=== PATIENT | male | born 1960 | race African-American/Black ===

== ENCOUNTER → 2016-09-01 | Outpatient (CLI) | payer OTHER ==
[2015-08-06 08:34] VITALS: BP 131/77
[~2016-09-01] MED LIST: DOCU50CA9 PO; GABA-585 PO; GABA-586 PO; GADOBUTROL 7.5 MMOL/7.5 ML VIAL IV ONE; HYDR-2762 PO; HYDR-971 PO; INSU100C SQ; INSU100I17 SQ; INSU100V13 SQ; INSU100V8 SQ; LISI-334 PO; METF500T4 PO; OXYC-323 PO; TIZA4TAB PO; TRAM50TA PO
--- NOTE | 2016-09-01 13:00 | KCIC ---
PROCEDURE MRI lumbar spine without and with contrast. HISTORY Lumbar radiculopathy, previous lumbar surgeries, new low back pain and bilateral leg pain pain for 3 months TECHNIQUE Sagittal and axial T1 and T2, sagittal STIR, and postcontrast sagittal and axial T1 weighted images were acquired of the lumbar spine. Contrast: 14 cc Gadavist COMPARISON January 16, 2015 FINDINGS There is some motion degradation. There has been interval surgery, now posterolateral fusion hardware with bilateral pedicle screws at L4, L5, and S1 attached to vertical rods. Exam does not accurately evaluate integrity of hardware. Lumbar vertebral body stature and AP alignment are similar. Conus terminates at approximately T12, not fully included. There is no nodular enhancement of the conus or cauda equina, no enhancement within the intervertebral disc spaces. There is again prominent degenerative endplate change at L4-5 and L5-S1. There is some thin linear T1 hyperintense signal such at the L2 level in the dorsal central aspect of the thecal sac, likely due to component of fatty filum terminale. Allowing for motion, there is no new convincing focal marrow edema, likely some artifact such as of the L4 and L5 vertebral bodies. L2-L3: Neural foramina and spinal canal are adequate. L3-4: Neural foramina and spinal canal are adequate. There is again mild facet degenerative change. There is negligible disc osteophyte complex in the anterior, inferior neural foramina. L4-5: There has been posterior decompression. There is again minimal disc osteophyte complex. Spinal canal is overall adequate. There is some artifact in the region of the neural foramina, likely mild narrowing on the left. L5-S1: Spinal canal is overall adequate. There is again minimal disc osteophyte complex. There is again protrusion in the distal, anterior right neural foramen and proximal right extraforaminal region with contact of the exiting right L5 nerve root. Left neural foramen is adequate. IMPRESSION 1. Comparing with the December 2014 exam, there has been interval posterolateral fusion L4-S1. Exam does not accurately evaluate integrity of hardware. There has been posterior decompression at L4-5. There is no significant lumbar spinal stenosis. Disc osteophyte complex and protrusion again contacts the exiting right L5 nerve root in the distal aspect of the right L5-S1 neural foramen and proximal extraforaminal region. There is suspected mild narrowing of the left L4-5 neural foramen. Electronically signed by: Wellington Núñez MD (Sep 01, 2016 12:58:54)
== END | disposition home or self-care (01) ==
LOC: KCIC MRI 09:20
PROVIDERS: ATTEND Internal Medicine
DX: M54.16 Radiculopathy, lumbar region (principal); M25.78 Osteophyte, vertebrae; M48.06 Spinal stenosis, lumbar region; M51.26 Other intervertebral disc displacement, lumbar region
CPT/HCPCS: 72158; 82565; A9585

== ENCOUNTER 2017-05-26 10:41 | Emergency (ER) | payer MEDICARE, OTHER ==
[~2017-05-26] VITALS: Ht 193 cm; Wt 145.1 kg
[~2017-05-26 10:41] MED LIST changes: -GADOBUTROL 7.5 MMOL/7.5 ML VIAL IV ONE
[2017-05-26] MEDS ORDERED: IV NORMAL SALINE 1000ML BAG 1,000 ML IV SCH (11:43)
[2017-05-26 12:00] LABS: BASO % 0 % (0-3); EOS % 2 % (0-3); HEMATOCRIT 40.7 % (39.0-53.0); HEMOGLOBIN 12.6 g/dL (13.0-17.5); LYMPH # 3.2 x10^3/uL (1.0-4.8); LYMPH % 48 % (24-48); MEAN CORPUSCULAR HEMOGLOBIN 22 pg (25-35); MEAN CORPUSCULAR HGB CONC 31 g/dL (31-37); MEAN CORPUSCULAR VOLUME 70 fL (79-100); MONO % 8 % (0-9); NEUT % 42 % (31-73); PLATELET COUNT 200 x10^3/uL (140-400); RED BLOOD COUNT 5.81 x10^6/uL (4.30-5.70); RED CELL DISTRIBUTION WIDTH 14.4 % (11.5-14.5); WHITE BLOOD COUNT 6.7 x10^3/uL (4.0-11.0)
[2017-05-26 12:06] LABS: CALCIUM 9.2 mg/dL (8.5-10.1); CREATININE 0.9 mg/dL (0.7-1.3); GFR 104.9; POTASSIUM 4.1 mmol/L (3.5-5.1)
[2017-05-26 12:11] LABS: ALBUMIN 3.2 g/dL (3.4-5.0); ALBUMIN/GLOBULIN RATIO 0.7 (1.0-1.7); TOTAL BILIRUBIN 0.5 mg/dL (0.2-1.0)
[2017-05-26] MEDS ORDERED: TETRACAINE 0.5% OPHTH SOLUTION 4ML BOTTLE. OD ONE (12:15)
[2017-05-26] MEDS ORDERED: PENI250T85 PO (12:52)
--- NOTE | 2017-05-26 12:52 | PHYS DOC ---
Past Medical History Past Medical History: Diabetes-Type II, Hypertension, Other Additional Past Medical Histor: BPH Past Surgical History: Knee Replacement Additional Past Surgical Histo: Right knee replacement, Left thumb surgery, Right eye surgery Alcohol Use: None Drug Use: None Adult General Chief Complaint Chief Complaint: DENTAL PROBLEM HPI HPI Patient is a 57 year old male who complains of dental pain and swelling around his tooth for 1-2 days. He felt so bad this morning that he didn't take his diabetes medication. He denies fever or chills, denies vomiting. He has chronic pain from sciatica but that is not a complaint today. No known drug allergies. Review of Systems Review of Systems Constitutional: Denies fever or chills [] GI: Denies nausea, vomiting Current Medications Current Medications Current Medications Medications (Trade) Dose Ordered Sig/Ursula Start Time Stop Time Status Last Admin Dose Admin Sodium Chloride 1,000 ml @ 1,000 mls/hr Q1H 05/26/17 11:43 05/26/17 12:42 DC 05/26/17 11:54 1,000 MLS/HR Tetracaine HCl (Tetracaine) 1 drop 1X ONCE 05/26/17 12:15 05/26/17 12:16 DC 05/26/17 11:57 1 DROP Allergies Allergies Allergies Coded Allergies Type Severity Reaction Last Updated Verified No Known Drug Allergies 08/06/15 No Physical Exam Physical Exam Constitutional: Well developed, well nourished, no acute distress, non-toxic appearance. Alert, mentating normally, warm and dry. HENT: Normocephalic, atraumatic, bilateral external ears normal, oropharynx moist, nose normal. The upper right central incisor has a chronic appearing fracture without significant abnormality acutely. The right upper premolar has swelling over the gums consistent with a periapical abscess. That tooth has significant caries. The patient is handling his secretions normally and has no trouble swallowing or talking. Neck: Normal range of motion, no stridor. [] Cardiovascular:Heart rate regular rhythm, no murmur [] Lungs & Thorax: Bilateral breath sounds clear to auscultation [] Abdomen: Bowel sounds normal, soft, no tenderness, no masses, no pulsatile masses. [] Skin: Warm, dry, no erythema, no rash. [] Back: No tenderness, no CVA tenderness. [] Extremities: No tenderness, no cyanosis, no clubbing, ROM intact, no edema. [] Neurologic: Alert and oriented X 3, normal motor function, no focal deficits noted. [] Current Patient Data Vital Signs Vital Signs Date Time Temp Pulse Resp B/P (MAP) Pulse Ox O2 Delivery O2 Flow Rate FiO2 05/26/17 13:08 62 16 131/86 (101) 100 Room Air 05/26/17 11:04 98.4 98.4 Lab Values Laboratory Tests Test 05/26/17 11:10 05/26/17 11:50 Glucose (Fingerstick) 304 mg/dL (70-99) H White Blood Count 6.7 x10^3/uL (4.0-11.0) Red Blood Count 5.81 x10^6/uL (4.30-5.70) H Hemoglobin 12.6 g/dL (13.0-17.5) L Hematocrit 40.7 % (39.0-53.0) Mean Corpuscular Volume 70 fL (79-100) L Mean Corpuscular Hemoglobin 22 pg (25-35) L Mean Corpuscular Hemoglobin Concent 31 g/dL (31-37) Red Cell Distribution Width 14.4 % (11.5-14.5) Platelet Count 200 x10^3/uL (140-400) Neutrophils (%) (Auto) 42 % (31-73) Lymphocytes (%) (Auto) 48 % (24-48) Monocytes (%) (Auto) 8 % (0-9) Eosinophils (%) (Auto) 2 % (0-3) Basophils (%) (Auto) 0 % (0-3) Neutrophils # (Auto) 2.8 x10^3uL (1.8-7.7) Lymphocytes # (Auto) 3.2 x10^3/uL (1.0-4.8) Monocytes # (Auto) 0.5 x10^3/uL (0.0-1.1) Eosinophils # (Auto) 0.2 x10^3/uL (0.0-0.7) Basophils # (Auto) 0.0 x10^3/uL (0.0-0.2) Platelet Estimate Adequate (ADEQUATE) Hypochromasia Mod Microcytosis Mod Sodium Level 137 mmol/L (136-145) Potassium Level 4.1 mmol/L (3.5-5.1) Chloride Level 101 mmol/L (98-107) Carbon Dioxide Level 27 mmol/L (21-32) Anion Gap 9 (6-14) Blood Urea Nitrogen 13 mg/dL (8-26) Creatinine 0.9 mg/dL (0.7-1.3) Estimated GFR (Cockcroft-Gault) 104.9 BUN/Creatinine Ratio 14 (6-20) Glucose Level 322 mg/dL (70-99) H Calcium Level 9.2 mg/dL (8.5-10.1) Total Bilirubin 0.5 mg/dL (0.2-1.0) Aspartate Amino Transferase (AST) 21 U/L (15-37) Alanine Aminotransferase (ALT) 33 U/L (16-63) Alkaline Phosphatase 74 U/L (46-116) Total Protein 8.0 g/dL (6.4-8.2) Albumin 3.2 g/dL (3.4-5.0) L Albumin/Globulin Ratio 0.7 (1.0-1.7) L Laboratory Tests 05/26/17 11:50 Laboratory Tests 05/26/17 11:50 EKG EKG [] Radiology/Procedures Radiology/Procedures Procedure: Incision and drainage of periapical dental abscess by me, location right anterior maxilla The area was anesthetized with tetracaine on cotton swabs locally. [Maximum fluctuance was incised with a #15 blade. Minimal amount of purulent drainage, moderate amount of bleeding resulted. The patient tolerated the procedure well.[] Course & Med Decision Making Course & Med Decision Making Pertinent Labs and Imaging studies reviewed. (See chart for details) 57-year-old male, diabetic, presents with pain and swelling in his mouth that appears to be a periapical abscess. His blood sugar is elevated. We will give him some IV fluids and check some labs, he is agreeable to that. Patient was given IV fluids. He remained stable in the ED. His periapical abscess was incised. We will start him on penicillin and I emphasized the importance of dental follow-up as soon as possible. See instructions for plan. [] Dragon Disclaimer Dragon Disclaimer This electronic medical record was generated, in whole or in part, using a voice recognition dictation system. Departure Departure Impression: Primary Impression: Periapical abscess Additional Impressions: Pain, dental Hyperglycemia due to type 2 diabetes mellitus Disposition: 01 HOME, SELF-CARE Condition: STABLE Referrals: FRED VIVEROS MD (PCP) Additional Instructions: As we discussed, it's important to see a dentist as soon as possible about your dental problems. Swish warm salt water 3-4 times a day in the area where I made an incision. We want to encourage that to drain if it is forming any more pus. We will start you on penicillin for dental infection. Your blood sugar was high. Start taking your medication as prescribed. Drink plenty of fluids. Watch your carbs. Follow-up with your primary care doctor. Scripts Penicillin V Potassium (PENICILLIN V POTASSIUM) 250 Mg Tablet 250 MG PO QID for dental infection for 7 Days, #28 TAB 0 Refills Prov: TIFFANI GROSS MD 05/26/17 Problem Qualifiers TIFFANI GROSS MD May 26, 2017 12:52
[2017-05-26 13:08] VITALS: BP 131/86
[2017-05-26 14:27] LABS: PLT ESTIMATE ADEQUATE (ADEQUATE)
[2017-05-26 14:28] LABS: HYPOCHROMIA MOD; MICROCYTOSIS MOD
== END 2017-05-26 13:08 | disposition home or self-care (01) ==
LOC: ER 10:41
DX: K04.7 Periapical abscess without sinus (principal); E11.65 Type 2 diabetes mellitus with hyperglycemia; I10 Essential (primary) hypertension; N40.0 Benign prostatic hyperplasia without lower urinary tract symptoms
CPT/HCPCS: 36415; 41800; 80053; 82962; 85025; 96360; 99284; J7030

== ENCOUNTER 2018-07-29 06:48 | Emergency (ER) | payer MEDICARE ==
[~2018-07-29] VITALS: Ht 193 cm; Wt 120.2 kg
[~2018-07-29 06:48] MED LIST changes: -GABA-586 PO; +GABA300C18 PO; -HYDR-2762 PO; +HYDR-2765 PO; +HYDR-3164 PO; -HYDR-971 PO; +METF500T16 PO; -METF500T4 PO; -OXYC-323 PO; +OXYC1TAB15 PO; +PENI250T85 PO
[2018-07-29] MEDS ORDERED: KETOROLAC 30 MG/ML VIAL. IV ONE (07:15)
[2018-07-29] MEDS ORDERED: HYDROmorphone 2 MG/ML VIAL IV/SQ PRN (07:15)
[2018-07-29] MEDS ORDERED: diazePAM 5 MG TABLET PO ONE (07:15)
--- NOTE | 2018-07-29 07:26 | PHYS DOC ---
Past Medical History Past Medical History: Diabetes-Type II, Hypertension, Other Additional Past Medical Histor: BPH Past Surgical History: Knee Replacement Additional Past Surgical Histo: Right knee replacement, Left thumb surgery, Right eye surgery, back surgeri Alcohol Use: None Drug Use: None Adult General Chief Complaint Chief Complaint: HIP PAIN HPI HPI Patient is a pleasant 58-year-old male who presents to the emergency department for evaluation. He states that over the past 4 days, he has had gradually worsening pain in his right buttock area, rating down the posterior/lateral aspect of his right leg, down towards his great toe. He has not had any incontinence, saddle anesthesia, new numbness or weakness. He has not had any fevers or chills. The pain is described as a sharp, electric-type pain. He states he has had problems similar to this, but not in the past 2 years since his back surgery. He denies any recent injuries. Movement is an attempted ambulation seems to worsen the patient's pain. There are no alleviating factors to his symptoms. He does not take any prescription pain medications, verified by a search of [employer]. Review of Systems Review of Systems Constitutional: Denies fever or chills [] Eyes: Denies change in visual acuity, redness, or eye pain [] HENT: Denies nasal congestion or sore throat [] Respiratory: Denies cough or shortness of breath [] Cardiovascular: The patient denies any shortness of breath, chest pain, palpitations, or orthopnea [] GI: Denies abdominal pain, nausea, vomiting, bloody stools or diarrhea [] : Denies dysuria or hematuria [] Musculoskeletal: Denies neck pain or joint pain [] Integument: Denies rash or skin lesions [] Neurologic: Denies headache, focal weakness or sensory changes [] Endocrine: Denies polyuria or polydipsia [] All other systems were reviewed and found to be within normal limits, except as documented in this note. Current Medications Current Medications Current Medications Medications (Trade) Dose Ordered Sig/Ursula Start Time Stop Time Status Last Admin Dose Admin Diazepam (Valium) 5 mg 1X ONCE 07/29/18 07:15 07/29/18 07:23 DC 07/29/18 07:45 5 MG Hydromorphone HCl (Dilaudid) 1 mg PRN Q15MIN PRN 07/29/18 07:15 07/30/18 07:14 07/29/18 07:45 1 MG Ketorolac Tromethamine (Toradol 30mg Vial) 30 mg 1X ONCE 07/29/18 07:15 07/29/18 07:23 DC 07/29/18 07:44 30 MG Allergies Allergies Allergies Coded Allergies Type Severity Reaction Last Updated Verified No Known Drug Allergies 08/06/15 No Physical Exam Physical Exam PHYSICAL EXAM: CONSTITUTIONAL: Well developed, well nourished HEAD: normocephalic, atraumatic EENT: PERRL, EOMI. Conjunctivae normal color, sclerae non-icteric; moist mucous membranes. NECK: Supple, non-tender; no meningismus. LUNGS: Lungs CTA, breathing even and unlabored. Normal air movement. HEART: Regular rate and rhythm, no murmur CHEST: No deformity; non-tender ABDOMEN: The abdomen is soft, and non-tender, no masses or bruits. EXTREM: Normal ROM; no deformity, no calf tenderness. Normal pulses palpable in all extremities. There is no pedal edema. SKIN: No rash; no diaphoresis NEURO: Alert; normal speech and cognition; CN's grossly intact; strength grossly intact without focal deficit. There is no foot drop. There is no perineal anesthesia. Patellar reflexes are unable to be elicited bilaterally. BACK: No CVA TTP. There is tenderness to palpation of the right lower sacral area, with mild tenderness to palpation radiating around to the buttocks. Straight leg raise is positive on the left at about 20. Current Patient Data Vital Signs Vital Signs Date Time Temp Pulse Resp B/P (MAP) Pulse Ox O2 Delivery O2 Flow Rate FiO2 07/29/18 07:06 98.0 72 20 151/88 (109) 98 Room Air 98.0 Lab Values Laboratory Tests Test 07/29/18 07:30 White Blood Count 6.5 x10^3/uL (4.0-11.0) Red Blood Count 5.45 x10^6/uL (4.30-5.70) Hemoglobin 12.2 g/dL (13.0-17.5) L Hematocrit 39.2 % (39.0-53.0) Mean Corpuscular Volume 72 fL (79-100) L Mean Corpuscular Hemoglobin 22 pg (25-35) L Mean Corpuscular Hemoglobin Concent 31 g/dL (31-37) Red Cell Distribution Width 14.1 % (11.5-14.5) Platelet Count 329 x10^3/uL (140-400) Neutrophils (%) (Auto) 43 % (31-73) Lymphocytes (%) (Auto) 46 % (24-48) Monocytes (%) (Auto) 8 % (0-9) Eosinophils (%) (Auto) 3 % (0-3) Basophils (%) (Auto) 1 % (0-3) Neutrophils # (Auto) 2.8 x10^3uL (1.8-7.7) Lymphocytes # (Auto) 3.0 x10^3/uL (1.0-4.8) Monocytes # (Auto) 0.5 x10^3/uL (0.0-1.1) Eosinophils # (Auto) 0.2 x10^3/uL (0.0-0.7) Basophils # (Auto) 0.1 x10^3/uL (0.0-0.2) Platelet Estimate Pending Erythrocyte Sedimentation Rate 35 (0-15) H Sodium Level 140 mmol/L (136-145) Potassium Level 4.1 mmol/L (3.5-5.1) Chloride Level 105 mmol/L (98-107) Carbon Dioxide Level 24 mmol/L (21-32) Anion Gap 11 (6-14) Blood Urea Nitrogen 15 mg/dL (8-26) Creatinine 0.9 mg/dL (0.7-1.3) Estimated GFR (Cockcroft-Gault) 104.5 Glucose Level 130 mg/dL (70-99) H Calcium Level 9.2 mg/dL (8.5-10.1) C-Reactive Protein, Quantitative 12.4 mg/L (0-3.3) H Laboratory Tests 07/29/18 07:30 Laboratory Tests 07/29/18 07:30 EKG EKG [] Radiology/Procedures Radiology/Procedures [] Course & Med Decision Making Course & Med Decision Making Pertinent Lab studies reviewed. (See chart for details) [9:35 AM: The patient's condition has significantly improved and he is feeling significantly better at this time. He is able to ambulate without significant difficulty. I discussed his elevated inflammatory markers, although clinical suspicion is for sciatica, the possibility of osteomyelitis or discitis or epidural abscess needs to be considered, although not highly clinically suspected. The patient is at increased risk due to his underlying diabetes. I discussed these diagnostic possibilities with the patient, and recommended doing an MRI in the emergency department to exclude this definitively, but the patient is feeling better and needs to leave the emergency department and does not want to stay. I explained clearly to the patient the risks of potentially undiagnosed infectious process, along with warmth or mortality and morbidity from this, and he expressed understanding but still would like to follow up as an outpatient. I discussed importance of close follow-up and return precautions in detail, as well as medication precautions from the prescriptions to be given. ] Dragon Disclaimer Dragon Disclaimer This electronic medical record was generated, in whole or in part, using a voice recognition dictation system. Departure Departure Impression: Primary Impression: Sciatica Additional Impression: Low back pain Disposition: HOME, SELF-CARE Condition: STABLE Referrals: FRED VIVEROS MD (PCP) CLAUDINE CHUNG MD Patient Instructions: Back Pain, Adult, Sciatica Additional Instructions: Ibuprofen 400-600 mg every 6 hours may help improve your symptoms. Applying a heating pad to the affected area may help improve your symptoms. The prescribed medications may cause drowsiness-use caution while taking. If symptoms persist or worsen or you develop increasing pain or fevers, numbness or weakness or incontinence, it is critically important that you return to the emergency department for further evaluation, such as an MRI. The ER physician who saw you today recommended an MRI, but he declined this in the emergency department. If symptoms worsen it is important that you undergo further evaluation and imaging. Scripts Hydrocodone/Apap 5-325 (NORCO 5-325 TABLET) 1 Each Tablet 1 TAB PO Q4-6HRS, #20 TAB Prov: CHRISTIANA VALDEZ MD 07/29/18 Diazepam (VALIUM) 5 Mg Tablet 5 MG PO QID, #20 TAB Prov: CHRISTIANA VALDEZ MD 07/29/18 Problem Qualifiers CHRISTIANA VALDEZ MD Jul 29, 2018 07:25
[2018-07-29 07:45] LABS: BASO # 0.1 x10^3/uL (0.0-0.2); BASO % 1 % (0-3); EOS # 0.2 x10^3/uL (0.0-0.7); EOS % 3 % (0-3); HEMATOCRIT 39.2 % (39.0-53.0); HEMOGLOBIN 12.2 g/dL (13.0-17.5); LYMPH % 46 % (24-48); MEAN CORPUSCULAR HEMOGLOBIN 22 pg (25-35); MEAN CORPUSCULAR HGB CONC 31 g/dL (31-37); MEAN CORPUSCULAR VOLUME 72 fL (79-100); MONO # 0.5 x10^3/uL (0.0-1.1); MONO % 8 % (0-9); NEUT # 2.8 x10^3uL (1.8-7.7); NEUT % 43 % (31-73); PLATELET COUNT 329 x10^3/uL (140-400); RED BLOOD COUNT 5.45 x10^6/uL (4.30-5.70); RED CELL DISTRIBUTION WIDTH 14.1 % (11.5-14.5); WHITE BLOOD COUNT 6.5 x10^3/uL (4.0-11.0)
[2018-07-29 07:51] LABS: CALCIUM 9.2 mg/dL (8.5-10.1); CREATININE 0.9 mg/dL (0.7-1.3); GFR 104.5; POTASSIUM 4.1 mmol/L (3.5-5.1)
[2018-07-29 08:03] LABS: C-REACTIVE PROTEIN 12.4 mg/L (0-3.3)
[2018-07-29] MEDS ORDERED: HYDR-3164 PO (09:40)
[2018-07-29] MEDS ORDERED: DIAZ5TAB PO (09:40)
[2018-07-29 10:10] VITALS: BP 140/70
[2018-07-29 10:23] LABS: PLT ESTIMATE ADEQUATE (ADEQUATE)
[2018-07-29 10:32] LABS: ANISOCYTOSIS PRESENT; HYPOCHROMIA PRESENT; MICROCYTOSIS PRESENT; OVALOCYTES FEW
== END 2018-07-29 10:11 | disposition home or self-care (01) ==
LOC: ER 06:48
DX: M54.41 Lumbago with sciatica, right side (principal); I10 Essential (primary) hypertension; E11.9 Type 2 diabetes mellitus without complications; N40.0 Benign prostatic hyperplasia without lower urinary tract symptoms; Z96.651 Presence of right artificial knee joint
CPT/HCPCS: 36415; 80048; 85025; 85651; 86140; 96374; 96375; 99283; J1170; J1885

== ENCOUNTER 2018-12-04 06:06 | Emergency (ER) | payer MEDICARE ==
[~2018-12-04] VITALS: Ht 193 cm; Wt 112.5 kg
[~2018-12-04 06:06] MED LIST changes: +DIAZ5TAB PO
[2018-12-04] MEDS ORDERED: KETOROLAC 60 MG/2 ML VIAL. IM ONE (07:00)
--- NOTE | 2018-12-04 07:09 | PHYS DOC ---
Past Medical History Past Medical History: Diabetes-Type II, Hypertension, Other Additional Past Medical Histor: BPH Past Surgical History: Knee Replacement Additional Past Surgical Histo: Right knee replacement, Left thumb surgery, Right eye surgery, back surger Alcohol Use: None Drug Use: None Adult General Chief Complaint Chief Complaint: UPPER EXTREMITY PAIN [facility] HPI Patient is a 58 year old right handed male who presents with complaining of left shoulder pain. Patient complaining of nontraumatic left shoulder pain for the last 3 days as a constant pain that getting worse with movement. Patient states he had feeling of numbness starting from his armpit going to fourth and fifth fingers without weakness. Patient states he is not able to raise his arm more than 30. Patient states he took Tylenol without improvement of his pain and rated his pain 8/10. 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 He was able to drive to the hospital by himself. Review of Systems Review of Systems Constitutional: Denies fever or chills [] Eyes: Denies change in visual acuity, redness, or eye pain [] HENT: Denies nasal congestion or sore throat [] Respiratory: Denies cough or shortness of breath [] Cardiovascular: No additional information not addressed in HPI [] GI: Denies abdominal pain, nausea, vomiting, bloody stools or diarrhea [] : Denies dysuria or hematuria [] Musculoskeletal: Denies back pain, reports joint pain [] Integument: Denies rash or skin lesions [] Neurologic: Denies headache, focal weakness or sensory changes [] Endocrine: Denies polyuria or polydipsia [] All other systems were reviewed and found to be within normal limits, except as documented in this note. Current Medications Current Medications Current Medications Medications (Trade) Dose Ordered Sig/[facility] Start Time Stop Time Status Last Admin Dose Admin Ketorolac Tromethamine (Toradol Im) 60 mg 1X ONCE 12/04/18 07:00 12/04/18 07:01 DC 12/04/18 06:39 60 MG Allergies Allergies Allergies Coded Allergies Type Severity Reaction Last Updated Verified No Known Drug Allergies 08/06/15 No Physical Exam Physical Exam Constitutional: Well developed, well nourished, mild distress, non-toxic appearance. [] HENT: Normocephalic, atraumatic. Eyes: PERRLA, EOMI, conjunctiva normal, no discharge. [] Neck: Normal range of motion, no tenderness, supple, no stridor. [] Cardiovascular:Heart rate regular rhythm, no murmur [] Lungs & Thorax: Bilateral breath sounds clear to auscultation [] Skin: Warm, dry, no erythema, no rash. [] Back: No tenderness, no CVA tenderness. [] Extremities: Left shoulder without deformity or edema, holding in semi-flexion position, limited range of abduction and external rotation, able to abduct with help of other hand, subjective paresthesia in left fourth and fifth finger, no edema. [] Neurologic: Alert and oriented X 3. Psychologic: Affect normal, judgement normal, mood normal. [] Current Patient Data Vital Signs Vital Signs Date Time Temp Pulse Resp B/P (MAP) Pulse Ox O2 Delivery O2 Flow Rate FiO2 12/04/18 06:19 98.1 95 24 166/111 (129) 98 Room Air 98.1 EKG EKG [] Radiology/Procedures Radiology/Procedures [facility] [address] [place] [address] IMAGING REPORT Signed PATIENT: SAILAJA CHILDS ACCOUNT: [id number] : 1960 LOCATION: ER AGE: 58 SEX: M EXAM STATUS: PRE ER ORD. PHYSICIAN: DERIC RYAN MD REASON: pain, no injury PROCEDURE: SHOULDER 2+V LEFT Left shoulder 3 views. HISTORY: Shoulder pain 3 views were taken of the left shoulder. There is hypertrophic change from arthritis at the acromioclavicular joint. There are tiny calcifications adjacent to the greater tuberosity suggesting mild calcific tendinitis. There is no fracture or dislocation or other acute osseous abnormality. IMPRESSION: 1. Mild calcific tendinitis. 2. Arthritis at the left AC joint. 3. No fracture or dislocation. Electronically signed by: Conner Choi MD (12/04/2018 7:36 AM) [facility] DICTATED and SIGNED BY: CONNER CHOI MD DATE: 12/04/18 0736 Course & Med Decision Making Course & Med Decision Making Pertinent Imaging studies reviewed. (See chart for details) Evaluation of patient in ER showed 58-year-old right-handed male patient with complaining of left shoulder pain without injury for the last 2 days. Patient had limited range of abduction with subjective paresthesia fourth and fifth finger. X-ray showed severe degenerative joint disease and tonight left AC .joint. Patient treated with [place] with mild improvement of his pain but because he did not have a ride to go home did not get a stronger pain medication in ER. Shoulder sling was provided and patient was advised to follow- up with information and data architect analyst orthopedic physician. I've spoken with the patient and/or caregivers. I've explained the patient's condition, diagnosis and treatment plan based on information available to me at this time. I've answered the patient's and/or caregivers questions and addressed any concerns. The patient and/or caregivers have a good understanding the patient's diagnosis, condition and treatment plan as can be expected at this point. Vital signs have been stabilized. The patient's condition is stable for discharge from the emergency department. The patient will pursue further outpatient evaluation with her primary care provider or other designated consulting physician as outlined in the discharge instructions. Patient and/or caregivers are agreeable to this plan of care and follow-up instructions have been explained in detail. The patient and/or caregivers have received these instructions in written format and expressed understanding of these discharge instructions. The patient and her caregivers are aware that if any significant change in condition or worsening of symptoms should prompt him to immediately return to this of the closest emergency department. If an emergent department is not readily available I would encourage him to call 911. Yvrose Disclaimer Dragon Disclaimer This electronic medical record was generated, in whole or in part, using a voice recognition dictation system. Departure Departure Impression: Primary Impression: Left shoulder tendinitis Additional Impression: Rotator cuff disorder Disposition: 01 HOME, SELF-CARE (at 0745) Condition: IMPROVED Referrals: FRED VIVEROS MD (PCP) BIJAN MON MD Patient Instructions: Calcific Tendinitis, Rotator Cuff Tendinitis Additional Instructions: Apply ice on the affected area Follow-up with your primary care physician in 3-5 days Return to ER if not getting better Use the provided shoulder sling Follow-up with information and data architect analyst orthopedic physician in 2 or 3 days Scripts Hydrocodone/Apap 5-325 (NORCO 5-325 TABLET) 1 Each Tablet 1 TAB PO PRN Q6HRS PRN for PAIN, #14 TAB 0 Refills Prov: DERIC RYAN MD 12/04/18 Methylprednisolone (MEDROL) 4 Mg Tab.ds.pk 1 PKG PO UD for inflammation, #1 PKG Prov: DERIC RYAN MD 12/04/18 Problem Qualifiers Additional Impression: Rotator cuff disorder Laterality: left Qualified Codes: M67.912 - Unspecified disorder of synovium and tendon, left shoulder DERIC RYAN MD Dec 04, 2018 07:09
--- NOTE | 2018-12-04 07:40 | RAD ---
Left shoulder 3 views. HISTORY: Shoulder pain 3 views were taken of the left shoulder. There is hypertrophic change from arthritis at the acromioclavicular joint. There are tiny calcifications adjacent to the greater tuberosity suggesting mild calcific tendinitis. There is no fracture or dislocation or other acute osseous abnormality. IMPRESSION: 1. Mild calcific tendinitis. 2. Arthritis at the left AC joint. 3. No fracture or dislocation. Electronically signed by: Conner Choi MD (12/04/2018 7:36 AM) [facility]
[2018-12-04 07:45] VITALS: BP 138/81
[2018-12-04] MEDS ORDERED: HYDR-3164 PO (07:48)
[2018-12-04] MEDS ORDERED: METH4TAB2 PO (07:48)
== END 2018-12-04 08:01 | disposition home or self-care (01) ==
LOC: ER 06:06
DX: M75.82 Other shoulder lesions, left shoulder (principal); M67.912 Unspecified disorder of synovium and tendon, left shoulder; I10 Essential (primary) hypertension; E11.9 Type 2 diabetes mellitus without complications
CPT/HCPCS: 73030; 96372; 99284; J1885; 99283

== ENCOUNTER 2019-01-31 05:29 | Emergency (ER) | payer MEDICARE ==
[~2019-01-31] VITALS: Ht 193 cm; Wt 123.8 kg
[~2019-01-31 05:29] MED LIST changes: +METH4TAB2 PO
[2019-01-31 05:41] VITALS: BP 143/98
[2019-01-31] MEDS ORDERED: PRED-220 PO (06:31)
[2019-01-31] MEDS ORDERED: TRAM50TA PO (06:31)
[2019-01-31] MEDS ORDERED: IBUP-1060 PO (06:31)
--- NOTE | 2019-01-31 06:31 | PHYS DOC ---
Past Medical History Past Medical History: Diabetes-Type II, Fibromyalgia, Hypertension, Other Additional Past Medical Histor: BPH,GOUT Past Surgical History: Knee Replacement Additional Past Surgical Histo: Right knee replacement, Left thumb surgery, Right eye surgery, back surger Alcohol Use: None Drug Use: None Adult General Chief Complaint Chief Complaint: UPPER EXTREMITY PAIN HPI HPI Patient is a 58 year old male presented to ER today for evaluation of left shoulder pain, right shoulder pain, bilateral wrist pain, left hip pain for the last few day. Patient denies any injury. Patient has history of arthritis. Patient felt like it flared up again. She denies any fever, no trouble breathing, no cough. Patient denies any chest pain or any abdominal pain. Review of Systems Review of Systems Constitutional: Denies fever or chills [] Eyes: Denies change in visual acuity, redness, or eye pain [] HENT: Denies nasal congestion or sore throat [] Respiratory: Denies cough or shortness of breath [] Cardiovascular: No additional information not addressed in HPI [] GI: Denies abdominal pain, nausea, vomiting, bloody stools or diarrhea [] : Denies dysuria or hematuria [] Musculoskeletal: Denies back pain. Positive for joints pain. Integument: Denies rash or skin lesions [] Neurologic: Denies headache, focal weakness or sensory changes [] Endocrine: Denies polyuria or polydipsia [] All other systems were reviewed and found to be within normal limits, except as documented in this note. Current Medications Current Medications Current Medications Medications (Trade) Dose Ordered Sig/Ursula Start Time Stop Time Status Last Admin Dose Admin Ketorolac Tromethamine (Toradol 30mg Vial) 30 mg 1X ONCE 01/31/19 07:00 01/31/19 07:00 DC 01/31/19 06:32 30 MG Methylprednisolone Sodium Succinate (SOLU-Medrol 125MG VIAL) 125 mg 1X ONCE 01/31/19 07:00 01/31/19 07:00 DC 01/31/19 06:32 125 MG Allergies Allergies Allergies Coded Allergies Type Severity Reaction Last Updated Verified No Known Drug Allergies 08/06/15 No Physical Exam Physical Exam Constitutional: Well developed, well nourished, no acute distress, non-toxic appearance. [] HENT: Normocephalic, atraumatic, bilateral external ears normal, oropharynx m oist, no oral exudates, nose normal. [] Eyes: PERRLA, EOMI, conjunctiva normal, no discharge. [] Neck: Normal range of motion, no tenderness, supple, no stridor. [] Cardiovascular:Heart rate regular rhythm, no murmur [] Lungs & Thorax: Bilateral breath sounds clear to auscultation [] Abdomen: Bowel sounds normal, soft, no tenderness, no masses, no pulsatile masses. [] Skin: Warm, dry, no erythema, no rash. [] Back: No tenderness, no CVA tenderness. [] Extremities: BOTH SHOULDERS, WRISTS ALL TENDER TO PALPATION, NO DEFORMITY. Neurologic: Alert and oriented X 3, normal motor function, normal sensory function, no focal deficits noted. [] Psychologic: Affect normal, judgement normal, mood normal. [] Current Patient Data Vital Signs Vital Signs Date Time Temp Pulse Resp B/P (MAP) Pulse Ox O2 Delivery O2 Flow Rate FiO2 01/31/19 05:41 98.3 97 20 143/98 (113) 98 Room Air 98.3 EKG EKG [] Radiology/Procedures Radiology/Procedures [] Course & Med Decision Making Course & Med Decision Making Pertinent Labs and Imaging studies reviewed. (See chart for details) [] Dragon Disclaimer Dragon Disclaimer This electronic medical record was generated, in whole or in part, using a voice recognition dictation system. Departure Departure Impression: Primary Impression: Arthritis Disposition: 01 HOME, SELF-CARE Condition: STABLE Referrals: FRED VIVEROS MD (PCP) follow up with your doctor this week for reevaluation Patient Instructions: Rheumatoid Arthritis Scripts Prednisone (PREDNISONE ) 10 Mg Tablet 20 MG PO DAILY for 7 Days, #14 TAB 0 Refills Prov: ALEX HOLLOWAY DO 01/31/19 Ibuprofen (IBUPROFEN) 800 Mg Tablet 800 MG PO PRN Q8HRS PRN for INFLAMMATION, #20 TAB Prov: ALEX HOLLOWAY DO 01/31/19 Tramadol Hcl (TRAMADOL HCL) 50 Mg Tablet 50 MG PO Q6HRS PRN for PAIN, #20 TAB Prov: ALEX HOLLOWAY DO 01/31/19 ALEX HOLLOWAY DO Jan 31, 2019 06:31
[2019-01-31] MEDS ORDERED: methylPREDNISolone SOD SUCC PF 125 MG/2 ML VIAL. IV ONE (07:00)
[2019-01-31] MEDS ORDERED: KETOROLAC 30 MG/ML VIAL. IV ONE (07:00)
== END 2019-01-31 06:40 | disposition home or self-care (01) ==
LOC: ER 05:29
DX: M19.90 Unspecified osteoarthritis, unspecified site (principal); M25.512 Pain in left shoulder; M25.511 Pain in right shoulder; M25.531 Pain in right wrist; M25.532 Pain in left wrist; M25.552 Pain in left hip; E11.9 Type 2 diabetes mellitus without complications; I10 Essential (primary) hypertension; M10.9 Gout, unspecified
CPT/HCPCS: 96374; 96375; 99284; J1885; J2930

== ENCOUNTER 2019-04-09 08:00 | Inpatient (IN) | payer MEDICARE ==
[~2019-04-09] VITALS: Ht 193 cm; Wt 122.5 kg
[~2019-04-09 08:00] MED LIST changes: +IBUP-1060 PO; +PRED-220 PO; -TIZA4TAB PO; +TIZA4TAB2 PO
[2019-04-09] MEDS ORDERED: fentaNYL PF VIAL 100 MCG/2 ML VIAL IV ONE (08:15)
[2019-04-09] MEDS ORDERED: ORPHENADRINE CITRATE 60 MG/2 ML VIAL. IM ONE (08:15)
--- NOTE | 2019-04-09 08:28 | PHYS DOC ---
Past Medical History Past Medical History: Diabetes-Type II, Fibromyalgia, Hypertension, Other Additional Past Medical Histor: BPH,GOUT Past Surgical History: Knee Replacement Additional Past Surgical Histo: Right knee replacement, Left thumb surgery, Right eye surgery, back surger Alcohol Use: None Drug Use: None Adult General Chief Complaint Chief Complaint: SHOUDLER HPI HPI Patient is a 58 year old male who presents with woke up at 2:30 this morning with right shoulder pain, right chest pain in mid back pain that is to the right more so paraspinal. Patient states it feels like a tightness and a pulling. Rates his pain a 10 out of 10 and cannot raise his arm or move at the shoulder joint without severe pain. Patient states he took Tylenol early this morning. Patient has a history of diabetes, gout, hypertension, fibromyalgia, BPH. Review of Systems Review of Systems Constitutional: Denies fever or chills [] Eyes: Denies change in visual acuity, redness, or eye pain [] HENT: Denies nasal congestion or sore throat [] Respiratory: Denies cough or shortness of breath [] Cardiovascular: Right upper chest GI: Denies abdominal pain, nausea, vomiting, bloody stools or diarrhea [] : Denies dysuria or hematuria [] Musculoskeletal: Right upper and mid right paraspinal back pain and right shoulder joint pain [] Integument: Denies rash or skin lesions [] Neurologic: Denies headache, focal weakness or sensory changes [] Endocrine: Denies polyuria or polydipsia [] All other systems were reviewed and found to be within normal limits, except as documented in this note. Current Medications Current Medications Current Medications Medications (Trade) Dose Ordered Sig/Ursula Start Time Stop Time Status Last Admin Dose Admin Fentanyl Citrate (Fentanyl 2ml Vial) 50 mcg 1X ONCE 04/09/19 08:15 04/09/19 08:19 DC 04/09/19 08:28 50 MCG Morphine Sulfate (Morphine Sulfate) 4 mg 1X ONCE 04/09/19 09:15 04/09/19 09:16 DC 04/09/19 09:20 4 MG Orphenadrine Citrate (Norflex) 60 mg 1X ONCE 04/09/19 08:15 04/09/19 08:19 DC 04/09/19 08:28 60 MG Prednisone (Prednisone) 50 mg 1X ONCE 04/09/19 09:45 04/09/19 09:46 DC 04/09/19 10:13 50 MG Sodium Chloride 1,000 ml @ 1,000 mls/hr 1X ONCE 04/09/19 09:30 04/09/19 10:29 DC 04/09/19 09:31 1,000 MLS/HR Allergies Allergies Allergies Coded Allergies Type Severity Reaction Last Updated Verified No Known Drug Allergies 08/06/15 No Physical Exam Physical Exam Constitutional: Well developed, well nourished, no acute distress, non-toxic appearance. [] HENT: Normocephalic, atraumatic, bilateral external ears normal, oropharynx moist, no oral exudates, nose normal. [] Eyes: PERRLA, EOMI, conjunctiva normal, no discharge. [] Neck: Normal range of motion, no tenderness, supple, no stridor. [] Cardiovascular:Heart rate regular rhythm, no murmur [] Lungs & Thorax: Bilateral breath sounds clear to auscultation [] Abdomen: Bowel sounds normal, soft, no tenderness, no masses, no pulsatile masses. [] Skin: Warm, dry, no erythema, no rash. [] Back: Right upper back paraspinal tenderness, no CVA tenderness. [] Extremities: Right shoulder joint tenderness, no cyanosis, no clubbing, Right shoulder ROM not intact, Right shoulder joint 3+ edema. [] Neurologic: Alert and oriented X 3, normal motor function, normal sensory fun ction, no focal deficits noted. [] Psychologic: Affect normal, judgement normal, mood normal. [] Current Patient Data Vital Signs Vital Signs Date Time Temp Pulse Resp B/P (MAP) Pulse Ox O2 Delivery O2 Flow Rate FiO2 04/09/19 08:08 97.7 75 22 170/106 (127) 98 Room Air 97.7 Lab Values Laboratory Tests Test 04/09/19 08:15 White Blood Count 6.1 x10^3/uL (4.0-11.0) Red Blood Count 5.19 x10^6/uL (4.30-5.70) Hemoglobin 11.8 g/dL (13.0-17.5) L Hematocrit 37.1 % (39.0-53.0) L Mean Corpuscular Volume 72 fL (79-100) L Mean Corpuscular Hemoglobin 23 pg (25-35) L Mean Corpuscular Hemoglobin Concent 32 g/dL (31-37) Red Cell Distribution Width 15.1 % (11.5-14.5) H Platelet Count 273 x10^3/uL (140-400) Neutrophils (%) (Auto) 42 % (31-73) Lymphocytes (%) (Auto) 48 % (24-48) Monocytes (%) (Auto) 8 % (0-9) Eosinophils (%) (Auto) 2 % (0-3) Basophils (%) (Auto) 0 % (0-3) Neutrophils # (Auto) 2.5 x10^3/uL (1.8-7.7) Lymphocytes # (Auto) 3.0 x10^3/uL (1.0-4.8) Monocytes # (Auto) 0.5 x10^3/uL (0.0-1.1) Eosinophils # (Auto) 0.1 x10^3/uL (0.0-0.7) Basophils # (Auto) 0.0 x10^3/uL (0.0-0.2) Sodium Level 141 mmol/L (136-145) Potassium Level 4.3 mmol/L (3.5-5.1) Chloride Level 104 mmol/L (98-107) Carbon Dioxide Level 24 mmol/L (21-32) Anion Gap 13 (6-14) Blood Urea Nitrogen 18 mg/dL (8-26) Creatinine 0.9 mg/dL (0.7-1.3) Estimated GFR (Cockcroft-Gault) 104.5 BUN/Creatinine Ratio 20 (6-20) Glucose Level 125 mg/dL (70-99) H Lactic Acid Level 0.9 mmol/L (0.4-2.0) Uric Acid 7.5 mg/dL (3.5-7.2) H Calcium Level 9.4 mg/dL (8.5-10.1) Magnesium Level 1.7 mg/dL (1.8-2.4) L Total Bilirubin 0.3 mg/dL (0.2-1.0) Aspartate Amino Transferase (AST) 11 U/L (15-37) L Alanine Aminotransferase (ALT) 19 U/L (16-63) Alkaline Phosphatase 58 U/L (46-116) Troponin I Quantitative < 0.017 ng/mL (0.000-0.055) C-Reactive Protein, Quantitative 6.0 mg/L (0-3.3) H Total Protein 8.5 g/dL (6.4-8.2) H Albumin 3.4 g/dL (3.4-5.0) Albumin/Globulin Ratio 0.7 (1.0-1.7) L Laboratory Tests 04/09/19 08:15 Laboratory Tests 04/09/19 08:15 EKG EKG Sinus Rhythm and no STEMI[] Interpretation Time: [address] Worley Radiology/Procedures Radiology/Procedures [] Impressions: [id number] [place] [address] IMAGING REPORT Signed PATIENT: SAILAJA CHILDS ACCOUNT: [id number] : 1960 LOCATION: ER AGE: 58 SEX: M EXAM STATUS: REG ER ORD. PHYSICIAN: SHELLIE JULIAN APRN REASON: pain right shoulder contracted unable to move arm PROCEDURE: SHOULDER 2+V RIGHT EXAM: 2 views right shoulder DATE: 04/09/2019 8:10 AM INDICATION: Right shoulder pain, limited movement COMPARISON: No Prior FINDINGS/ IMPRESSION: 1. Mild AC joint and glenohumeral joint osteoarthritis. 2. No evidence of acute fracture or dislocation. 3. Moderate soft tissue swelling overlying the right AC joint. Electronically signed by: Christos Layne MD (04/09/2019 8:55 AM) [facility] DICTATED and SIGNED BY: CHRISTOS LAYNE MD DATE: 04/09/19 [id number] [place] [address] IMAGING REPORT Signed PATIENT: SAILAJA CHILDS ACCOUNT: [id number] : 1960 LOCATION: ER AGE: 58 SEX: M EXAM STATUS: REG ER ORD. PHYSICIAN: SHELLIE JULIAN APRN REASON: pain right upper back, PATIENT UNABLE TO MOVE RIGHT ARM PROCEDURE: CHEST PA & LATERAL EXAM: PA and Lateral Views of the Chest DATE: 04/09/2019 8:10 AM INDICATION: Back pain, unable to move right arm COMPARISON: 11/12/2015 FINDINGS: The heart is not enlarged. Mediastinal and hilar contours are stable. Aorta is tortuous. Minimal patchy opacities right lung base likely atelectasis. No pleural effusion or pneumothorax. IMPRESSION: 1. Minimal patchy opacities right lung base likely atelectasis. Otherwise, no radiographic evidence for acute cardiopulmonary process. Electronically signed by: Christos Layne MD (04/09/2019 8:57 AM) [facility] DICTATED and SIGNED BY: CHRISTOS LAYNE MD DATE: 04/09/19 0857 Course & Med Decision Making Course & Med Decision Making Patient is a 58 year old male who presents with woke up at 2:30 this morning with right shoulder pain, right chest pain in mid back pain that is to the right more so paraspinal. Patient states it feels like a tightness and a pulling. Rates his pain a 10 out of 10 and cannot raise his arm or move at the shoulder joint without severe pain. Patient states he took Tylenol early this morning. Patient has a history of diabetes, gout, hypertension, fibromyalgia, BPH. Patient has right-sided paraspinal pain just beside the scapula with tenderness with palpation. There is 2-3+ swelling in the right shoulder joint and the right shoulder is noticeably raised up farther than the left shoulder. Patient states he can feel pulling in his neck also. Joint is not red or hot to touch but is tender with palpation. Alert and oriented. Ambulatory with a steady gait. Speaks in full clear sentences. Skin pink warm and dry. Patient denies nausea, vomiting, abdominal pain, dizziness, numbness or tingling, visual changes, headache, shortness of breath. No peripheral edema. EKG shows sinus rhythm and no STEMI. Shoulder xray shows 1. Mild AC joint and glenohumeral joint osteoarthritis. 2. No evidence of acute fracture or dislocation. 3. Moderate soft tissue swelling overlying the right AC joint. Uric acid 7.5 and C-reactive protein 6.0. Dr Garcia is admitting patient for Gout. He states to give Colchicine and consult orthopedics. Dragon Disclaimer Dragon Disclaimer This electronic medical record was generated, in whole or in part, using a voice recognition dictation system. Departure Departure Impression: Primary Impression: Gout attack Disposition: ADMITTED INPATIENT Admitting Physician: ADA Condition: STABLE Referrals: FRED VIVEROS MD (PCP) Problem Qualifiers Primary Impression: Gout attack Gout site: shoulder Gout etiology: unspecified cause Laterality: right Qualified Codes: M10.9 - Gout, unspecified SHELLIE JULIAN [employer] CONTR[employer] Apr 09, 2019 08:28
[2019-04-09 08:29] LABS: BASO % 0 % (0-3); EOS # 0.1 x10^3/uL (0.0-0.7); EOS % 2 % (0-3); HEMATOCRIT 37.1 % (39.0-53.0); HEMOGLOBIN 11.8 g/dL (13.0-17.5); LYMPH % 48 % (24-48); MEAN CORPUSCULAR HEMOGLOBIN 23 pg (25-35); MEAN CORPUSCULAR HGB CONC 32 g/dL (31-37); MEAN CORPUSCULAR VOLUME 72 fL (79-100); MONO # 0.5 x10^3/uL (0.0-1.1); MONO % 8 % (0-9); NEUT # 2.5 x10^3/uL (1.8-7.7); NEUT % 42 % (31-73); PLATELET COUNT 273 x10^3/uL (140-400); RED BLOOD COUNT 5.19 x10^6/uL (4.30-5.70); RED CELL DISTRIBUTION WIDTH 15.1 % (11.5-14.5); WHITE BLOOD COUNT 6.1 x10^3/uL (4.0-11.0)
[2019-04-09 08:38] LABS: CALCIUM 9.4 mg/dL (8.5-10.1); CREATININE 0.9 mg/dL (0.7-1.3); GFR 104.5; POTASSIUM 4.3 mmol/L (3.5-5.1)
[2019-04-09 08:44] LABS: ALBUMIN 3.4 g/dL (3.4-5.0); ALBUMIN/GLOBULIN RATIO 0.7 (1.0-1.7); MAGNESIUM 1.7 mg/dL (1.8-2.4); TOTAL BILIRUBIN 0.3 mg/dL (0.2-1.0); TOTAL PROTEIN 8.5 g/dL (6.4-8.2)
--- NOTE | 2019-04-09 08:58 | RAD ---
EXAM: 2 views right shoulder DATE: 04/09/2019 8:10 AM INDICATION: Right shoulder pain, limited movement COMPARISON: No Prior FINDINGS/ IMPRESSION: 1. Mild AC joint and glenohumeral joint osteoarthritis. 2. No evidence of acute fracture or dislocation. 3. Moderate soft tissue swelling overlying the right AC joint. Electronically signed by: Christos Bustos MD (04/09/2019 8:55 AM) [facility]
--- NOTE | 2019-04-09 09:00 | RAD ---
EXAM: PA and Lateral Views of the Chest DATE: 04/09/2019 8:10 AM INDICATION: Back pain, unable to move right arm COMPARISON: 11/12/2015 FINDINGS: The heart is not enlarged. Mediastinal and hilar contours are stable. Aorta is tortuous. Minimal patchy opacities right lung base likely atelectasis. No pleural effusion or pneumothorax. IMPRESSION: 1. Minimal patchy opacities right lung base likely atelectasis. Otherwise, no radiographic evidence for acute cardiopulmonary process. Electronically signed by: Christos Bustos MD (04/09/2019 8:57 AM) [facility]
[2019-04-09] MEDS ORDERED: MORPHINE SULFATE 4 MG/ML VIAL. IV ONE (09:15)
[2019-04-09] MEDS ORDERED: IV NORMAL SALINE 1000ML BAG 1,000 ML IV ONE (09:30)
[2019-04-09] MEDS ORDERED: predniSONE 10 MG TABLET PO ONE (09:45)
[2019-04-09] MEDS ORDERED: ONDANSETRON PF 4 MG/2 ML VIAL. IV PRN (11:00)
[2019-04-09] MEDS ORDERED: MORPHINE SULFATE 4 MG/ML VIAL. IV PRN (11:00)
[2019-04-09] MEDS ORDERED: ACETAMINOPHEN 325 MG TABLET. PO PRN (11:00)
[2019-04-09] MEDS ORDERED: COLCHICINE 0.6 MG TABLET PO ONE (11:30)
[2019-04-09 12:07] LABS: ANISOCYTOSIS SLIGHT; MICROCYTOSIS MOD; PLT ESTIMATE ADEQUATE (ADEQUATE)
[2019-04-09 12:50] VITALS: BP 155/80
--- NOTE | 2019-04-09 12:50 | EKG ---
[facility] [address] [place] [address] Test Date: 2019-04-09 Test Time: 08:16:32 Pat Name: SAILAJA CHILDS Department: Room: Gender: M [employer]: : 1960 Requested By: SHELLIE JULIAN Order Number: [id number] Reading MD: Measurements Intervals [place] Rate: 76 P: 48 SD: 158 QRS: -10 QRSD: 96 T: 36 QT: 330 QTc: 375 Interpretive Statements SINUS RHYTHM LEFTWARD AXIS NO SPECIFIC ECG ABNORMALITIES RI6.01 Unconfirmed report No previous ECG available for comparison
[2019-04-09] MEDS ORDERED: DEXTROSE 50% 25 GM / 50ML DISP.SYRIN. IV PRN (14:00)
[2019-04-09] MEDS ORDERED: IV DEXTROSE 5% 250 ML BAG. IV PRN (14:00)
[2019-04-09] MEDS ORDERED: IBUPROFEN 400 MG TABLET. PO PRN (14:00)
[2019-04-09] MEDS ORDERED: BUPIVACAINE MPF 0.25% 10 ML VIAL. IJ ONE (14:15)
[2019-04-09] MEDS ORDERED: methylPREDNISolone ACETATE 80 MG/ML VIAL. IM ONE (14:15)
[2019-04-09] MEDS: GABAPENTIN 300 MG CAPSULE. PO SCH ×2 (14:20→20:44)
[2019-04-09 15:00] VITALS: BP 138/83
--- NOTE | 2019-04-09 15:21 | HP ---
ADMIT DATE: 04/09/2019 CHIEF COMPLAINT: Right shoulder pain. HISTORY OF PRESENT ILLNESS: The patient is a pleasant middle-aged male, well known to my service, presents with right shoulder pain. He rates it as 7/10. It is worse with movement, better with sitting still. He tried increasing his home meds, but that did not work, describes as irritating. I discussed the case with ER physician. There is some concern he could have gout. His imaging is abnormal. We are going to admit the patient and consult Orthopedics. PAST MEDICAL HISTORY: Polypharmacy, diabetes, hypertension, hyperlipidemia, depression, anxiety, chronic pain, arthritis, and constipation. ALLERGIES: None. FAMILY HISTORY: Diabetes. SOCIAL HISTORY: He does not drink, smoke or take drugs. MEDICATIONS: Reviewed, please refer to the MRAD. He is on 17. REVIEW OF SYSTEMS: GENERAL: No history of weight change, weakness or fevers. SKIN: No bruising, hair changes or rashes. EYES: No blurred, double or loss of vision. NOSE AND THROAT: No history of nosebleeds, hoarseness or sore throat. HEART: No history of palpitations, chest pain or shortness of breath on exertion. LUNGS: Denies cough, hemoptysis, wheezing or shortness of breath. GASTROINTESTINAL: Denies changes in appetite, nausea, vomiting, diarrhea or constipation. GENITOURINARY: No history of frequency, urgency, hesitancy or nocturia. NEUROLOGIC: Denies history of numbness, tingling, tremor or weakness. PSYCHIATRIC: No history of panic, anxiety or depression. ENDOCRINE: No history of heat or cold intolerance, polyuria or polydipsia. EXTREMITIES: He complains of right shoulder pain. PHYSICAL EXAMINATION: VITALS: Within normal limits and are stable. GENERAL: No apparent distress. Alert and oriented. HEENT: Head is normocephalic, atraumatic, pupils were equally round and reactive to light and accommodation. NECK: Supple, no JVD, no thyromegaly was noted. LUNGS: Clear to auscultation in all lung parker without rhonchi or wheezing. HEART: RRR, S1, S2 present. Peripheral pulses intact, no obvious murmurs were noted. ABDOMEN: Soft, nontender. Positive bowel sounds no organomegaly, normal bowel sounds. EXTREMITIES: Without any cyanosis, clubbing, or edema. Pedal pulses intact, Homans sign is negative. NEUROLOGIC: Normal speech, normal tone. A & O x3, moves all extremities, no obvious focal deficits. PSYCHIATRIC: Normal affect, normal mood. Stable. SKIN: No ulcerations or rashes, good skin turgor, no jaundice. VASCULAR: Good capillary refill, neurovascular bundle appears to be intact. LABORATORY DATA: Electrolytes are normal. C-reactive protein is high at 3. Troponin is 0. Right shoulder x-ray shows AC joint and glenohumeral joint osteoarthritis. No fractures were noted. There was moderate soft tissue swelling over the AC joint. ASSESSMENT AND PLAN: Possible gout or perhaps just progression of acute on chronic right shoulder arthritis. The patient has been admitted. We will consult Orthopedics. IV fluids, p.r.n. pain meds, home meds, DVT prophylaxis. Full code. DIONNE BAKER DO DR: CALLI/mitch JOB#: [id number] / [id number]
[2019-04-09] MEDS: INSULIN LISPRO 300 UNITS/3 ML VIAL. SQ SCH (17:35)
[2019-04-09 19:00] VITALS: BP 143/87
[2019-04-09] MEDS: metFORMIN 500 MG TABLET PO SCH (20:44)
[2019-04-09] MEDS ORDERED: DOCUSATE 100 MG/10 ML SOLUTION. PO SCH (21:00)
[2019-04-09] MEDS ORDERED: INSULIN GLARGINE SYRINGE. SQ SCH (21:00)
--- NOTE | 2019-04-09 22:28 | CONS ---
DATE OF CONSULTATION: 04/09/2019 ORTHOPEDIC CONSULTATION NOTE REQUESTING PHYSICIAN: I believe is Dr. Cantor. REASON FOR CONSULTATION: Right shoulder pain. HISTORY OF PRESENT ILLNESS: The patient is a 58-year-old male that woke up at about 2:30 this morning with right shoulder pain, mid back and right-sided chest area pain, tightness and pulling. He says the shoulder pain is very severe. He cannot raise his arm or move the shoulder. He does have a history of gout, does not note any shortness of breath and was unrelieved by Tylenol this morning. PAST MEDICAL HISTORY: Significant for diabetes, gout, hypertension, prostatic hypertrophy and fibromyalgia. PAST SURGICAL HISTORY: Right knee replacement, left thumb surgery, back and eye surgeries as well. MEDICATIONS: List is reviewed. ALLERGIES: He has no known drug allergies. FAMILY HISTORY: Noncontributory. REVIEW OF SYSTEMS: Significant for previous gout attacks, never and shoulder before primarily in the smaller extremities. Currently, no chest pain, shortness of breath, radiating pain, focal weakness, numbness, tingling or visual changes. PHYSICAL EXAMINATION: GENERAL: A pleasant, cooperative 58-year-old male, alert and oriented, no acute distress. EXTREMITIES: Examination of the right shoulder, he has minimal range of motion. He has pain even on passive range of motion. Rotator cuff strength very limited secondary to pain. There is no apprehension or instability. He has normal parascapular motion. He is tender on palpation and mildly swollen over the right shoulder glenohumeral joint, more so than the acromioclavicular joint, otherwise normal examination of the contralateral left shoulder, bilateral elbows and wrists. He walks with a normal gait. No sign of any swelling, redness, warmth or erythema in the lower extremities, hip, knee or ankle or him the small joints of his feet or toes. LABORATORY DATA: White blood cell count is 6.1. Temperature is afebrile. C-reactive protein is 6. Uric acid slightly high at 7.5. IMPRESSION: 1. Right shoulder pain. 2. History of gout. No evidence of infection or other joint involvement. TREATMENT PLAN: I went over with him that since he has no previous shoulder symptoms. X-rays are normal and no traumatic episode assumption of gout or other inflammatory condition is certainly reasonable. Furthermore, I do not think there is any downside as far as any injection, which may give him good symptomatic relief. I told him if he does not get reasonable relief in a couple of days, we may want to consider further imaging such as an MRI. He agrees to proceed with injection and after informed consent was obtained, right shoulder was injected with 1 mL 80 mg/mL Depo-Medrol under sterile conditions from an anterior approach under sterile conditions, which he tolerated well. He will keep track of how well and how long this works with followup on an as needed basis depending on his ongoing response as above. BIJAN MON MD DR: GLORY/mitch JOB#: [id number] / [id number]
[2019-04-09 23:00] VITALS: BP 145/92
[2019-04-10 03:00] VITALS: BP 151/83
[2019-04-10 07:00] VITALS: BP 132/92
[2019-04-10] MEDS: INSULIN LISPRO 300 UNITS/3 ML VIAL. SQ SCH ×2 (08:00→12:00)
[2019-04-10] MEDS ORDERED: LISINOPRIL 20 MG TABLET PO SCH (09:00)
[2019-04-10] MEDS: metFORMIN 500 MG TABLET PO SCH (09:15)
[2019-04-10] MEDS: GABAPENTIN 300 MG CAPSULE. PO SCH (09:15)
[2019-04-10 10:44] LABS: CALCIUM 9.4 mg/dL (8.5-10.1); CREATININE 0.9 mg/dL (0.7-1.3); GFR 104.5; POTASSIUM 4.4 mmol/L (3.5-5.1)
[2019-04-10 11:00] VITALS: BP 146/96
--- NOTE | 2019-04-10 12:01 | PDOC ---
PROGRESS NOTES Subjective Subjective Problems overnight: Cristobal reports that his right shoulder is doing much better hollowing the injection he can move it fully and really has no pain. He is reviewing for a geometry test that is coming up Objective Vital Signs Vital Signs Date Time Temp Pulse Resp B/P (MAP) Pulse Ox O2 Delivery O2 Flow Rate FiO2 04/10/19 09:17 68 155/95 04/10/19 07:00 98.0 18 96 Room Air 98.0 Physical Exam On examination he has full range of motion excellent rotator cuff strength no apprehension or instability distal neurovascular status is intact and swelling seems to be decreased markedly to the right shoulder Labs Laboratory Tests Test 04/09/19 08:15 04/09/19 12:58 04/09/19 16:44 04/09/19 20:42 White Blood Count 6.1 x10^3/uL (4.0-11.0) Red Blood Count 5.19 x10^6/uL (4.30-5.70) Hemoglobin 11.8 g/dL (13.0-17.5) Hematocrit 37.1 % (39.0-53.0) Mean Corpuscular Volume 72 fL (79-100) Mean Corpuscular Hemoglobin 23 pg (25-35) Mean Corpuscular Hemoglobin Concent 32 g/dL (31-37) Red Cell Distribution Width 15.1 % (11.5-14.5) Platelet Count 273 x10^3/uL (140-400) Neutrophils (%) (Auto) 42 % (31-73) Lymphocytes (%) (Auto) 48 % (24-48) Monocytes (%) (Auto) 8 % (0-9) Eosinophils (%) (Auto) 2 % (0-3) Basophils (%) (Auto) 0 % (0-3) Neutrophils # (Auto) 2.5 x10^3/uL (1.8-7.7) Lymphocytes # (Auto) 3.0 x10^3/uL (1.0-4.8) Monocytes # (Auto) 0.5 x10^3/uL (0.0-1.1) Eosinophils # (Auto) 0.1 x10^3/uL (0.0-0.7) Basophils # (Auto) 0.0 x10^3/uL (0.0-0.2) Platelet Estimate Adequate (ADEQUATE) Anisocytosis Slight Microcytosis Mod Sodium Level 141 mmol/L (136-145) Potassium Level 4.3 mmol/L (3.5-5.1) Chloride Level 104 mmol/L (98-107) Carbon Dioxide Level 24 mmol/L (21-32) Anion Gap 13 (6-14) Blood Urea Nitrogen 18 mg/dL (8-26) Creatinine 0.9 mg/dL (0.7-1.3) Estimated GFR (Cockcroft-Gault) 104.5 BUN/Creatinine Ratio 20 (6-20) Glucose Level 125 mg/dL (70-99) Lactic Acid Level 0.9 mmol/L (0.4-2.0) Uric Acid 7.5 mg/dL (3.5-7.2) Calcium Level 9.4 mg/dL (8.5-10.1) Magnesium Level 1.7 mg/dL (1.8-2.4) Total Bilirubin 0.3 mg/dL (0.2-1.0) Aspartate Amino Transf (AST/SGOT) 11 U/L (15-37) Alanine Aminotransferase (ALT/SGPT) 19 U/L (16-63) Alkaline Phosphatase 58 U/L (46-116) Troponin I Quantitative < 0.017 ng/mL (0.000-0.055) C-Reactive Protein, Quantitative 6.0 mg/L (0-3.3) Total Protein 8.5 g/dL (6.4-8.2) Albumin 3.4 g/dL (3.4-5.0) Albumin/Globulin Ratio 0.7 (1.0-1.7) Glucose (Fingerstick) 148 mg/dL (70-99) 184 mg/dL (70-99) 170 mg/dL (70-99) Test 04/10/19 07:20 04/10/19 10:10 Glucose (Fingerstick) 155 mg/dL (70-99) Sodium Level 137 mmol/L (136-145) Potassium Level 4.4 mmol/L (3.5-5.1) Chloride Level 103 mmol/L (98-107) Carbon Dioxide Level 24 mmol/L (21-32) Anion Gap 10 (6-14) Blood Urea Nitrogen 16 mg/dL (8-26) Creatinine 0.9 mg/dL (0.7-1.3) Estimated GFR (Cockcroft-Gault) 104.5 Glucose Level 124 mg/dL (70-99) Calcium Level 9.4 mg/dL (8.5-10.1) Laboratory Tests Test 04/09/19 12:58 04/09/19 16:44 04/09/19 20:42 04/10/19 07:20 Glucose (Fingerstick) 148 mg/dL (70-99) 184 mg/dL (70-99) 170 mg/dL (70-99) 155 mg/dL (70-99) Test 04/10/19 10:10 Sodium Level 137 mmol/L (136-145) Potassium Level 4.4 mmol/L (3.5-5.1) Chloride Level 103 mmol/L (98-107) Carbon Dioxide Level 24 mmol/L (21-32) Anion Gap 10 (6-14) Blood Urea Nitrogen 16 mg/dL (8-26) Creatinine 0.9 mg/dL (0.7-1.3) Estimated GFR (Cockcroft-Gault) 104.5 Glucose Level 124 mg/dL (70-99) Calcium Level 9.4 mg/dL (8.5-10.1) Assessment Assessment POD# 1 injection right shoulder for suspected gout Plan Plan of Care He is doing very well at present he can use the shoulder as tolerated and follow-up with me can really be on an as-needed basis depending on his ongoing response BIJAN MON MD Apr 10, 2019 12:01
[2019-04-10] MEDS ORDERED: ALLO100T PO (12:04)
--- NOTE | 2019-04-10 12:09 | PDOC3 ---
Discharge Summary Visit Information Date of Admission: Apr 09, 2019 Date of Discharge: Apr 10, 2019 Final Diagnosis acute gout htn' arthritis obese dm,2 Problems Medical Problems: (1) Gout attack Status: Acute Brief Hospital Course Allergies Allergies Coded Allergies Type Severity Reaction Last Updated Verified No Known Drug Allergies 08/06/15 No Vital Signs Vital Signs Date Time Temp Pulse Resp B/P (MAP) Pulse Ox O2 Delivery O2 Flow Rate FiO2 04/10/19 09:17 68 155/95 04/10/19 07:00 98.0 18 96 Room Air 98.0 Lab Results Laboratory Tests Test 04/09/19 08:15 04/09/19 12:58 04/09/19 16:44 04/09/19 20:42 White Blood Count 6.1 x10^3/uL (4.0-11.0) Red Blood Count 5.19 x10^6/uL (4.30-5.70) Hemoglobin 11.8 g/dL (13.0-17.5) Hematocrit 37.1 % (39.0-53.0) Mean Corpuscular Volume 72 fL (79-100) Mean Corpuscular Hemoglobin 23 pg (25-35) Mean Corpuscular Hemoglobin Concent 32 g/dL (31-37) Red Cell Distribution Width 15.1 % (11.5-14.5) Platelet Count 273 x10^3/uL (140-400) Neutrophils (%) (Auto) 42 % (31-73) Lymphocytes (%) (Auto) 48 % (24-48) Monocytes (%) (Auto) 8 % (0-9) Eosinophils (%) (Auto) 2 % (0-3) Basophils (%) (Auto) 0 % (0-3) Neutrophils # (Auto) 2.5 x10^3/uL (1.8-7.7) Lymphocytes # (Auto) 3.0 x10^3/uL (1.0-4.8) Monocytes # (Auto) 0.5 x10^3/uL (0.0-1.1) Eosinophils # (Auto) 0.1 x10^3/uL (0.0-0.7) Basophils # (Auto) 0.0 x10^3/uL (0.0-0.2) Platelet Estimate Adequate (ADEQUATE) Anisocytosis Slight Microcytosis Mod Sodium Level 141 mmol/L (136-145) Potassium Level 4.3 mmol/L (3.5-5.1) Chloride Level 104 mmol/L (98-107) Carbon Dioxide Level 24 mmol/L (21-32) Anion Gap 13 (6-14) Blood Urea Nitrogen 18 mg/dL (8-26) Creatinine 0.9 mg/dL (0.7-1.3) Estimated GFR (Cockcroft-Gault) 104.5 BUN/Creatinine Ratio 20 (6-20) Glucose Level 125 mg/dL (70-99) Lactic Acid Level 0.9 mmol/L (0.4-2.0) Uric Acid 7.5 mg/dL (3.5-7.2) Calcium Level 9.4 mg/dL (8.5-10.1) Magnesium Level 1.7 mg/dL (1.8-2.4) Total Bilirubin 0.3 mg/dL (0.2-1.0) Aspartate Amino Transf (AST/SGOT) 11 U/L (15-37) Alanine Aminotransferase (ALT/SGPT) 19 U/L (16-63) Alkaline Phosphatase 58 U/L (46-116) Troponin I Quantitative < 0.017 ng/mL (0.000-0.055) C-Reactive Protein, Quantitative 6.0 mg/L (0-3.3) Total Protein 8.5 g/dL (6.4-8.2) Albumin 3.4 g/dL (3.4-5.0) Albumin/Globulin Ratio 0.7 (1.0-1.7) Glucose (Fingerstick) 148 mg/dL (70-99) 184 mg/dL (70-99) 170 mg/dL (70-99) Test 04/10/19 07:20 04/10/19 10:10 Glucose (Fingerstick) 155 mg/dL (70-99) Sodium Level 137 mmol/L (136-145) Potassium Level 4.4 mmol/L (3.5-5.1) Chloride Level 103 mmol/L (98-107) Carbon Dioxide Level 24 mmol/L (21-32) Anion Gap 10 (6-14) Blood Urea Nitrogen 16 mg/dL (8-26) Creatinine 0.9 mg/dL (0.7-1.3) Estimated GFR (Cockcroft-Gault) 104.5 Glucose Level 124 mg/dL (70-99) Calcium Level 9.4 mg/dL (8.5-10.1) Laboratory Tests Test 04/09/19 12:58 04/09/19 16:44 04/09/19 20:42 04/10/19 07:20 Glucose (Fingerstick) 148 mg/dL (70-99) 184 mg/dL (70-99) 170 mg/dL (70-99) 155 mg/dL (70-99) Test 04/10/19 10:10 Sodium Level 137 mmol/L (136-145) Potassium Level 4.4 mmol/L (3.5-5.1) Chloride Level 103 mmol/L (98-107) Carbon Dioxide Level 24 mmol/L (21-32) Anion Gap 10 (6-14) Blood Urea Nitrogen 16 mg/dL (8-26) Creatinine 0.9 mg/dL (0.7-1.3) Estimated GFR (Cockcroft-Gault) 104.5 Glucose Level 124 mg/dL (70-99) Calcium Level 9.4 mg/dL (8.5-10.1) Brief Hospital Course Mr. Morales is a 58 old male, admit with severe, acute right shoulder pain, ortho consult, Dr. Dubois injected steroids, pain much better, ROM back to normal start low dose allopurinol in 2 days, colchicine now f/u Dr. Ziegler Discharge Information Condition at Discharge: Improved Follow Up: Weeks Disposition/Orders: D/C to Home Scheduled Allopurinol (Allopurinol) 100 Mg Tablet, 1 TAB PO DAILY for prevent gout, #30 Prescribed by: BRANDIE OGLESBY on 04/10/19 1204 Docusate Sodium (Stool Softener) 50 Mg Capsule, 50 MG PO HS for stool softener, (Reported) Last dose given: 08-08-15 9:00 a.m. Next dose due: 08-09-15 Entered as Reported by: ROSMERY CUEVAS on 11/10/14 1356 Last Action: Converted on 04/09/19 1349 by KING KANG Gabapentin (Gabapentin ) 300 Mg Capsule, 300 MG PO TID for nerve pain, (Reported) LAST DOSE GIVEN: DATE:08-08-15 TIME:2:00 p.m. NEXT DOSE DUE: DATE:08-08-15 TIME:9:00 p.m. Entered as Reported by: JOHANN LUCERO on 02/14/15 1125 Last Action: Continued on 04/09/191348 by KING KANG Insulin Detemir (Levemir) 100 Unit/1 Ml Vial, 12 UNIT SQ HS for antidiabetic, (Reported) LAST DOSE GIVEN: DATE:08-07-15 TIME:9:00 p.m. NEXT DOSE DUE: DATE:08-08-15 TIME:9:00 p.m. Entered as Reported by: MICHELLE JENNINGS on 07/30/15 1317 Last Action: Converted on 04/09/191348 by KING KANG Insulin Lispro (Humalog) 100 Unit/1 Ml Cartridge, 100 UNIT SQ BID for antidiabetic, (Reported) LAST DOSE GIVEN: DATE:08-07-15 TIME:12:00 p.m. NEXT DOSE DUE: DATE:08-07-15 TIME:5:00 p.m. Entered as Reported by: MICHELLE JENNINGS on 07/30/158 Last Action: Reviewed on 04/09/191308 by KING KANG Lisinopril (Lisinopril) 20 Mg Tablet, 20 MG PO DAILY for hypertension, (Reported) LAST DOSE GIVEN: DATE:08-08-15 TIME: 9:00 a.m. NEXT DOSE DUE: DATE:08-09-15 TIME:9:00 a.m. Entered as Reported by: ARNOLD FU on 08/04/131403 Last Action: Continued on 04/09/191348 by KING KANG Metformin Hcl (Metformin Hcl) 500 Mg Tablet, 500 MG PO BID for antidiabetic, (Reported) LAST DOSE GIVEN: DATE:08-08-15 TIME:9:00 a.m. NEXT DOSE DUE: DATE:08-08-15 TIME: 9:00 p.m. Entered as Reported by: ARNOLD FU on 08/04/131403 Last Action: Continued on 04/09/191348 by KING KANG Scheduled PRN Ibuprofen (Ibuprofen) 800 Mg Tablet, 800 MG PO PRN Q8HRS PRN for INFLAMMATION, #20 Prescribed by: ALEX HOLLOWAY D.O. on 01/31/19 0631 Last Action: Converted on 04/09/19 1349 by KING KANG Discontinued Medications Tizanidine Hcl (Tizanidine Hcl) 4 Mg Tablet, 1 TAB PO Q6HRS for muscle relaxer, #60 (Reported) LAST DOSE GIVEN: DATE:08-08-15 TIME:12:00 p.m. NEXT DOSE DUE: DATE:08-08-15 TIME:9:00 p.m. Entered as Reported by: ROSMERY CUEVAS on 11/10/14 1355 Last Action: Discontinued on 04/09/19 1309 by KING KANG Patient Instructions Patient Instructions face to face > 30min total coordination of care BRANDIE OGLESBY MD Apr 10, 2019 12:09
[2019-04-10 12:14] LABS: BASO # 0.1 x10^3/uL (0.0-0.2); BASO % 1 % (0-3); EOS # 0.1 x10^3/uL (0.0-0.7); EOS % 1 % (0-3); HEMATOCRIT 38.1 % (39.0-53.0); HEMOGLOBIN 11.9 g/dL (13.0-17.5); LYMPH # 3.8 x10^3/uL (1.0-4.8); LYMPH % 39 % (24-48); MEAN CORPUSCULAR HEMOGLOBIN 23 pg (25-35); MEAN CORPUSCULAR HGB CONC 31 g/dL (31-37); MEAN CORPUSCULAR VOLUME 73 fL (79-100); MONO # 0.7 x10^3/uL (0.0-1.1); MONO % 7 % (0-9); NEUT # 5.1 x10^3/uL (1.8-7.7); NEUT % 52 % (31-73); PLATELET COUNT 280 x10^3/uL (140-400); RED BLOOD COUNT 5.23 x10^6/uL (4.30-5.70); RED CELL DISTRIBUTION WIDTH 15.5 % (11.5-14.5); WHITE BLOOD COUNT 9.7 x10^3/uL (4.0-11.0)
[2019-04-10] MEDS ORDERED: COLCHICINE 0.6 MG TABLET PO ONE (12:15)
--- NOTE | 2019-04-10 13:12 | NUR ---
Discharge Note: [facility] [address] [place] [address] Discharge instructions and discharge home medications reviewed with Patient and a copy given. All questions have been answered and understanding verbalized. The following instructions and handouts were given:Gout, steroid inj Discontinued lines and drains: peripheral line. Patient discharged to home with self care, accompanied by his sister. Belongings sent home w/ pt, ambulated from room to private vehicle.
== END 2019-04-10 13:32 | disposition home or self-care (01) | DRG 554 ==
LOC: ER 08:00 → 5 NORTH 10:30
PROVIDERS: ADMIT Internal Medicine; ATTEND Internal Medicine
PROC: 3E0U33Z Introduction of Anti-inflammatory into Joints, Percutaneous Approach (ICD-10-PCS; principal; 2019-04-09)
DX: M10.011 Idiopathic gout, right shoulder (principal); F32.9 Major depressive disorder, single episode, unspecified; F41.9 Anxiety disorder, unspecified; G89.29 Other chronic pain; E11.9 Type 2 diabetes mellitus without complications; E66.9 Obesity, unspecified; E78.5 Hyperlipidemia, unspecified; I10 Essential (primary) hypertension; M79.7 Fibromyalgia; N40.0 Benign prostatic hyperplasia without lower urinary tract symptoms; Z96.651 Presence of right artificial knee joint; Z83.3 Family history of diabetes mellitus; Z68.32 Body mass index [BMI] 32.0-32.9, adult
CPT/HCPCS: 36415; 71046; 73030; 80048; 80053; 82962; 83605; 83735; 84484; 84550; 85025; 86140; 87040; 93005; 96361; 96372; 96374; 96375; J1815; J2270; J2360; J3010; J7030; J7512; 99285-25; G0378

== ENCOUNTER 2019-07-19 10:11 | Emergency (ER) | payer MEDICARE ==
[~2019-07-19] VITALS: Ht 193 cm; Wt 136.5 kg
[~2019-07-19 10:11] MED LIST changes: +ALLO100T PO
[2019-07-19 10:36] VITALS: BP 148/88
[2019-07-19] MEDS ORDERED: KETOROLAC TROMETHAMINE 10 MG TABLET PO STA (10:40)
[2019-07-19] MEDS ORDERED: PRED20TA PO (10:45)
--- NOTE | 2019-07-19 10:45 | PHYS DOC ---
Past Medical History Past Medical History: Diabetes-Type II, Fibromyalgia, Hypertension, Other Additional Past Medical Histor: BPH,GOUT Past Surgical History: Knee Replacement Additional Past Surgical Histo: Right knee replacement, Left thumb surgery, Right eye surgery, back surger Alcohol Use: None Drug Use: None Adult General Chief Complaint Chief Complaint: HAND PROBLEM HPI HPI Patient is a 59 year old male who presents with bilateral hand swelling sister in his left hand that worsened this morning. He states states that it is increas ed pain in his joints. He took 600 mg of Motrin before arrival. He has a history of rheumatoid arthritis. He is not currently on methotrexate. 01/31 pain. Review of Systems Review of Systems Constitutional: Denies fever or chills [] Eyes: Denies change in visual acuity, redness, or eye pain [] HENT: Denies nasal congestion or sore throat [] Respiratory: Denies cough or shortness of breath [] Cardiovascular: No additional information not addressed in HPI [] GI: Denies abdominal pain, nausea, vomiting, bloody stools or diarrhea [] : Denies dysuria or hematuria [] Musculoskeletal: Reports bilateral joint pain, and hand swelling. Integument: Denies rash or skin lesions [] Neurologic: Denies headache, focal weakness or sensory changes [] Endocrine: Denies polyuria or polydipsia [] Complete systems were reviewed and found to be within normal limits, except as documented in this note. Allergies Allergies Allergies Coded Allergies Type Severity Reaction Last Updated Verified No Known Drug Allergies 08/06/15 No Physical Exam Physical Exam Constitutional: Well developed, well nourished, no acute distress, non-toxic appearance. [] HENT: Normocephalic, atraumatic, bilateral external ears normal, oropharynx moist, no oral exudates, nose normal. [] Eyes: PERRLA, EOMI, conjunctiva normal, no discharge. [] Neck: Normal range of motion, no tenderness, supple, no stridor. [] Skin: bilateral hands are edematous.] Back: No tenderness, no CVA tenderness. [] Extremities: joint tenderness in bilateral hands with moderate edema. Neurologic: Alert and oriented X 3, normal motor function, normal sensory function, no focal deficits noted. [] Psychologic: Affect normal, judgement normal, mood normal. [] Current Patient Data Vital Signs Vital Signs Date Time Temp Pulse Resp B/P (MAP) Pulse Ox O2 Delivery O2 Flow Rate FiO2 07/19/19 10:36 97.4 88 18 148/88 (108) 97 Room Air 97.4 EKG EKG [] Radiology/Procedures Radiology/Procedures [] Course & Med Decision Making Course & Med Decision Making Pertinent Labs and Imaging studies reviewed. (See chart for details) Discussed with patient. Will give Toradol and put on Steroids. Recommended patient call primary care doctor to be placed back on Methotrexate. Dragon Disclaimer Dragon Disclaimer This electronic medical record was generated, in whole or in part, using a voice recognition dictation system. Departure Departure Impression: Primary Impression: Rheumatoid arthritis flare Disposition: HOME, SELF-CARE Condition: STABLE Referrals: FRED VIVEROS MD (PCP) Patient Instructions: Rheumatoid Arthritis Additional Instructions: Thank you for visiting [facility]. We appreciate you trusting us with your care. If any additional problems come up don't hesitate to return to visit us. Please follow up with your primary care provider so they can plan additional care if needed and know about the problem that you had. If symptoms worsen come back to the Emergency Department. Any concerning symptoms that start such as chest pain, shortness of air, weakness or numbness on one side of the body, running high fevers or any other concerning symptoms return to the ER. Please fill your medications at any pharmacy and follow the prescription instructions. Scripts Prednisone (PREDNISONE) 20 Mg Tablet 1 TAB PO DAILY, #5 TAB Prov: SALLY LAY APRN 07/19/19 SALLY LAY APRN Jul 19, 2019 10:45
== END 2019-07-19 10:51 | disposition home or self-care (01) ==
LOC: ER 10:11
DX: M06.842 Other specified rheumatoid arthritis, left hand (principal); M06.841 Other specified rheumatoid arthritis, right hand; E11.9 Type 2 diabetes mellitus without complications; M79.7 Fibromyalgia; I10 Essential (primary) hypertension
CPT/HCPCS: 99283

== ENCOUNTER 2019-10-17 09:29 | Emergency (ER) | payer MEDICARE ==
[~2019-10-17] VITALS: Ht 193 cm; Wt 136.3 kg
[~2019-10-17 09:29] MED LIST changes: +PRED20TA PO
[2019-10-17 10:12] VITALS: BP 171/84
[2019-10-17] MEDS ORDERED: DOXY100T PO (10:29)
[2019-10-17] MEDS ORDERED: ACETAMINOPHEN 500 MG TABLET PO ONE (10:30)
--- NOTE | 2019-10-17 10:39 | PHYS DOC ---
Past Medical History Past Medical History: Diabetes-Type II, Fibromyalgia, Hypertension, Other Additional Past Medical Histor: BPH,GOUT Past Surgical History: Knee Replacement Additional Past Surgical Histo: Right knee replacement, Left thumb surgery, Right eye surgery, back surger Smoking Status: Never Smoker Alcohol Use: None Drug Use: None Adult General Chief Complaint Chief Complaint: SORE THROAT HPI HPI Patient is a 59 year old male with history of diabetes as well as rheumatoid arthritis and asthma who is presenting with 1 week now of sore throat sinus congestion cough occasional yellow sputum has some left rib pain with coughing so much. He feels warm at times he is getting worse rather than better. Positive sick contacts noted Review of Systems Review of Systems Musculoskeletal: Denies back pain or joint pain [] Integument: Denies rash or skin lesions [] Neurologic: Denies headache, focal weakness or sensory changes [] Endocrine: Denies polyuria or polydipsia [] All other systems were reviewed and found to be within normal limits, except as documented in this note. Current Medications Current Medications Current Medications Medications (Trade) Dose Ordered Sig/Ursula Start Time Stop Time Status Last Admin Dose Admin Acetaminophen (Tylenol) 1,000 mg 1X ONCE 10/17/19 10:30 10/17/19 10:31 DC Allergies Allergies Allergies Coded Allergies Type Severity Reaction Last Updated Verified No Known Drug Allergies 08/06/15 No Physical Exam Physical Exam Constitutional: Well developed, well nourished, no acute distress, non-toxic appearance. [] HENT: Normocephalic, atraumatic, bilateral external ears normal, oropharynx moist, no oral exudates, nose normal. [] Eyes: PERRLA, EOMI, conjunctiva normal, no discharge. [] Neck: Normal range of motion, no tenderness, supple, no stridor. [] Cardiovascular:Heart rate regular rhythm, no murmur [] Lungs & Thorax: Bilateral breath sounds clear to auscultation []lungs are clear. There is right frontal sinus tenderness noted extraocular movements are intact there is no erythema of the face seen. Oropharynx shows mild erythema with no exudate noted. Abdomen: Bowel sounds normal, soft, no tenderness, no masses, no pulsatile masses. [] Skin: Warm, dry, no erythema, no rash. [] Back: No tenderness, no CVA tenderness. [] Extremities: No tenderness, no cyanosis, no clubbing, ROM intact, no edema. [] Neurologic: Alert and oriented X 3, normal motor function, normal sensory function, no focal deficits noted. [] Psychologic: Affect normal, judgement normal, mood normal. [] Current Patient Data Vital Signs Vital Signs Date Time Temp Pulse Resp B/P (MAP) Pulse Ox O2 Delivery O2 Flow Rate FiO2 10/17/19 10:12 98.3 100 16 171/84 (113) 100 Room Air 98.3 EKG EKG [] Radiology/Procedures Radiology/Procedures [] Course & Med Decision Making Course & Med Decision Making Pertinent Labs and Imaging studies reviewed. (See chart for details) []Advised blood pressure follow-up within 1 month. We are waiting on a fingerstick glucose. In summary this is a 59-year-old male with diabetes and asthma who is presenting with a week of worsening sinus symptoms sore throat cough or runny nose subjective fever does have asymmetric sinus tenderness fairly prominent on examination think he warrants a round of antibiotics for that. Considered x-ray imaging but we are treating with doxycycline anyway I asked him to come back in 5 days should he not be better for further testing and he is agreeable to that. Dragon Disclaimer Dragon Disclaimer This electronic medical record was generated, in whole or in part, using a voice recognition dictation system. Departure Departure Impression: Primary Impression: Sinusitis Disposition: 01 HOME, SELF-CARE Condition: STABLE Patient Instructions: Sinusitis Additional Instructions: Please come back in 5 days should do not be better for further testing and imaging. Please get her blood pressure check in one month. Scripts Doxycycline Hyclate (DOXYCYCLINE HYCLATE) 100 Mg Tablet 1 TAB PO BID, #20 TAB Prov: IHSAN WEN MD 10/17/19 IHSAN WEN MD Oct 17, 2019 10:39
== END 2019-10-17 10:48 | disposition home or self-care (01) ==
LOC: ER 09:29
DX: J32.9 Chronic sinusitis, unspecified (principal); J45.909 Unspecified asthma, uncomplicated; E11.9 Type 2 diabetes mellitus without complications; I10 Essential (primary) hypertension; M10.9 Gout, unspecified
CPT/HCPCS: 99283

== ENCOUNTER 2020-12-26 12:01 | Emergency (ER) | payer MEDICARE ==
[~2020-12-26] VITALS: Ht 193 cm; Wt 130.9 kg
[~2020-12-26 12:01] MED LIST changes: +DOXY100T PO; -LISI-334 PO; +LISI20TA18 PO
[2020-12-26 12:17] VITALS: BP 132/96
[2020-12-26] MEDS ORDERED: NAPROXEN 500 MG TABLET PO STA (12:34)
[2020-12-26] MEDS ORDERED: HYDROcodone/APAP 5/325MG 1 TAB TABLET PO ONE (12:45)
[2020-12-26] MEDS ORDERED: cefTRIAXone IM 1 GM VIAL IM ONE (12:45)
[2020-12-26] MEDS ORDERED: LIDOCAINE 1% PF 2 ML VIAL. INJ ONE (12:45)
[2020-12-26] MEDS ORDERED: AMOX875T PO (13:04)
[2020-12-26] MEDS ORDERED: CHLO15MO2 PO (13:04)
[2020-12-26] MEDS ORDERED: HYDR-2761 PO (13:04)
--- NOTE | 2020-12-26 13:09 | PHYS DOC ---
Past Medical History Past Medical History: Diabetes-Type II, Fibromyalgia, Hypertension, Other Additional Past Medical Histor: BPH,GOUT Past Surgical History: Knee Replacement Additional Past Surgical Histo: Right knee replacement, Left thumb surgery, Right eye surgery, back surger Smoking Status: Never Smoker Alcohol Use: None Drug Use: None General Adult EDM: Chief Complaint: DENTAL PROBLEM HPI: HPI: Patient is a 60 year old male with history of diabetes, hypertension, who presents to the ED today with a dental abscess on the left upper gum that began 3 days ago after a tooth broke. Patient states he went to the dentist office today and the dentist was not available. Patient denies any fever. Review of Systems: Review of Systems: Constitutional: Denies fever or chills. [] HENT: Reports dental abscess. Denies nasal congestion or sore throat. [] Musculoskeletal: Denies back pain or joint pain. [] Integument: Denies rash. [] Neurologic: Denies headache, focal weakness or sensory changes. [] Psychiatric: Denies depression or anxiety. [] Heart Score: C/O Chest Pain: N/A Risk Factors: Risk Factors: DM, Current or recent (<one month) smoker, HTN, HLP, family history of CAD, obesity. Risk Scores: Score 0 - 3: 2.5% MACE over next 6 weeks - Discharge Home Score 4 - 6: 20.3% MACE over next 6 weeks - Admit for Clinical Observation Score 7 - 10: 72.7% MACE over next 6 weeks - Early Invasive Strategies Current Medications: Current Medications Medications (Trade) Dose Ordered Sig/Ursula Start Time Stop Time Status Last Admin Dose Admin Acetaminophen/ Hydrocodone Bitart (Lortab 5/325) 2 tab 1X ONCE 12/26/20 12:45 12/26/20 12:46 DC 12/26/20 12:53 2 TAB Ceftriaxone Sodium (Rocephin Im) 1 gm 1X ONCE 12/26/20 12:45 12/26/20 12:46 DC 12/26/20 12:54 1 GM Lidocaine HCl (Xylocaine-Mpf 1% 2ml Vial) 2 ml 1X ONCE 12/26/20 12:45 12/26/20 12:46 DC 12/26/20 12:54 2 ML Naproxen (Naprosyn) 500 mg 1X STAT 12/26/20 12:34 12/26/20 12:38 DC 12/26/20 12:53 500 MG Allergies: Allergies: Allergies Coded Allergies Type Severity Reaction Last Updated Verified No Known Drug Allergies 08/06/15 No Physical Exam: PE: Constitutional: Well developed, well nourished, no acute distress, non-toxic appearance. [] HENT: Normocephalic, atraumatic, bilateral external ears normal, oropharynx moist, no oral exudates, nose normal. [] Patient is missing multiple teeth, they feel that her left hand decayed and broken. Left upper approximately first molar appears to have an abscess around it, the abscess is draining pus, a tongue blade was used to express pus from this region. Skin: Warm, dry, no erythema, no rash. [] Back: No tenderness, no CVA tenderness. [] Extremities: No tenderness, no cyanosis, no clubbing, ROM intact, no edema. [] Neurologic: Alert and oriented X 3, normal motor function, normal sensory function, no focal deficits noted. [] Psychologic: Affect normal, judgement normal, mood normal. [] Current Patient Data: Vital Signs: Vital Signs Date Time Temp Pulse Resp B/P (MAP) Pulse Ox O2 Delivery O2 Flow Rate FiO2 12/26/20 12:17 97.9 81 18 132/96 (108) 96 Room Air 97.9 EKG: EKG: [] Radiology/Procedures: Radiology/Procedures: [] Course & Med Decision Making: Course & Med Decision Making Pertinent Labs and Imaging studies reviewed. (See chart for details) This is a 60-year-old male patient presented to the ED today with a dental abscess abscess was partially drained by me in the emergency room, given Rocephin 1 g in the ED. Discharged in amoxicillin chlorhexidine and hydrocodone for pain. He has a dentist for follow-up. Yvrose Disclaimer: Yvrose Disclaimer: This electronic medical record was generated, in whole or in part, using a voice recognition dictation system. Departure Departure Impression: Primary Impression: Dental abscess Additional Impression: Infected dental caries Disposition: HOME / SELF CARE / HOMELESS Condition: STABLE Referrals: FRED VIEVROS MD (PCP) Follow-up with your dentist as soon as possible Patient Instructions: Dental Abscess Additional Instructions: You have a dental abscess, please use the medicines prescribed as ordered. Consider rinsing your mouth with warm water with salt 3 times a day. Follow-up with your dentist Scripts Hydrocodone Bit/Acetaminophen (HYDROCODONE-APAP 5-325 ) 1 Tab Tablet 1 TAB PO PRN Q6HRS PRN for PAIN, #14 TAB 0 Refills Prov: GARDENIA PORTER APRN 12/26/20 Chlorhexidine Gluconate (PERIDEX) 15 Ml Mouthwash 15-30 ML PO TID for 8 Days, #473 ML 0 Refills Prov: GARDENIA PORTER APRN 12/26/20 Amoxicillin (AMOXICILLIN) 875 Mg Tablet 1 TAB PO BID, #20 TAB Prov: GARDENIA PORTER APRN 12/26/20 GARDENIA PORTER APRN December 26, 2020 13:09
== END 2020-12-26 13:25 | disposition home or self-care (01) ==
LOC: ER 12:01
DX: K04.7 Periapical abscess without sinus (principal); E11.9 Type 2 diabetes mellitus without complications; I10 Essential (primary) hypertension; M10.9 Gout, unspecified
CPT/HCPCS: 41800; 96372; 99284; J0696; J3490; 99283

== ENCOUNTER 2021-04-21 13:28 | Observation (INO) | payer MEDICARE, OTHER ==
[~2021-04-21] VITALS: Ht 193 cm; Wt 132.0 kg
[~2021-04-21 13:28] MED LIST changes: +AMOX875T PO; +CHLO15MO2 PO; +HYDR-2761 PO
[2021-04-21 14:41] LABS: BASO % 0 % (0-3); EOS % 0 % (0-3); HEMOGLOBIN 11.8 g/dL (13.0-17.5); LYMPH # 2.2 x10^3/uL (1.0-4.8); LYMPH % 20 % (24-48); MEAN CORPUSCULAR HEMOGLOBIN 23 pg (25-35); MEAN CORPUSCULAR HGB CONC 32 g/dL (31-37); MEAN CORPUSCULAR VOLUME 71 fL (79-100); MONO # 0.8 x10^3/uL (0.0-1.1); MONO % 7 % (0-9); NEUT # 8.2 x10^3/uL (1.8-7.7); NEUT % 73 % (31-73); PLATELET COUNT 375 x10^3/uL (140-400); RED BLOOD COUNT 5.18 x10^6/uL (4.30-5.70); RED CELL DISTRIBUTION WIDTH 13.6 % (11.5-14.5); WHITE BLOOD COUNT 11.3 x10^3/uL (4.0-11.0)
--- NOTE | 2021-04-21 14:50 | RAD ---
EXAM: CHEST 1 VIEW History: Fatigue, weakness COMPARISON: 04/09/2019 TECHNIQUE: Single portable radiograph of the chest FINDINGS: The cardiac silhouette is unremarkable. Mild bibasilar lung atelectasis or infiltrates. Th e costophrenic sulci are clear and well demarcated. IMPRESSION: Mild bibasilar lung atelectasis or infiltrates. Electronically signed by: Landon Kam MD (04/21/2021 2:48 PM) [id number]
[2021-04-21 15:06] LABS: HYPOCHROMIA SLIGHT; MICROCYTOSIS MOD; PLT ESTIMATE ADEQUATE (ADEQUATE); POLYCHROMASIA SLIGHT
--- NOTE | 2021-04-21 15:30 | RAD ---
CT brain without contrast. HISTORY: Dizziness, headache, leg weakness CT scan the brain was done without contrast. Sinuses are clear. There is no intracranial hemorrhage o r subdural hematoma. There is no mass effect or shift of the midline. Ventricles are normal in size. An acute CVA is not identified. There is mild decreased density in the periventricular white matter p ossible chronic small vessel ischemic disease. There is a focus of decreased density in the brainstem could be artifact or focal lesion MRI could be of benefit. IMPRESSION: 1. No intracranial hemorrhage. 2. Mild white matter changes likely chronic microvascular ischemic changes. 3. Artifact versus small low-density focus in the brainstem, MRI could be of benefit. PQRS Compliance Statement: One or more of the following individualized dose reduction techniques were utilized for this examinat ion: 1. Automated exposure control 2. Adjustment of the mA and/or kV according to patient size 3. Use of iterative reconstruction technique Electronically signed by: Conner Choi MD (04/21/2021 3:28 PM) [id number]
[2021-04-21 15:41] LABS: CALCIUM 10.2 mg/dL (8.5-10.1); CREATININE 1.5 mg/dL (0.7-1.3); GFR 57.4; POTASSIUM 4.2 mmol/L (3.5-5.1)
[2021-04-21 15:46] LABS: ALBUMIN 3.4 g/dL (3.4-5.0); ALBUMIN/GLOBULIN RATIO 0.6 (1.0-1.7); MAGNESIUM 2.4 mg/dL (1.8-2.4); TOTAL BILIRUBIN 0.4 mg/dL (0.2-1.0); TOTAL PROTEIN 9.2 g/dL (6.4-8.2)
--- NOTE | 2021-04-21 15:54 | RAD ---
CT lumbar spine without contrast. HISTORY: Right leg weakness, pain, he history of previous lower lumbar fusion at L4 S1. Axial CT images were obtained through the lumbar spine. Sagittal and coronal reconstructed images wer e reviewed. Comparison is made with a study from July 2015. There is no aortic aneurysm. There is no hydronephrosis in the kidneys. Lumbar spines in normal alignment. There is no lumbar fracture. Pe dicle screws at L4, L5 and S1. Good position. There is a right disc protrusion at the lateral recess and foramina on the right side at T10-11. There is no focal disc protrusion or spinal stenosis at T11 -12. There is no focal disc protrusion or spinal stenosis at T12-L1. There is spurring on the left at T12-L1 on the vertebral body. There is also spurring on the left at L1-2 with lateral disc bulge on the left at L1-2. No central spinal stenosis or foraminal stenosis. There is diffuse bulging of the d isc at L2-3 with mild lateral recess stenosis but not central spinal stenosis or foraminal stenosis. There is bulging of the disc with mild spinal stenosis and lateral recess stenosis at L3-4. A focal disc protrusion is not identified. There is not evidence of foraminal stenosis at L3-4. There is spur ring at L4-5 more on the right than on the left with mild lateral recess narrowing. There is foramina l narrowing on the right at L4-5. There is a lateral disc extrusion with peripheral calcification at the lateral foramina on the right at L5-S1 with attenuation of the nerve. IMPRESSION: 1. Right disc protrusion with lateral recess stenosis and foraminal narrowing at T10-11. 2. Lateral disc protrusion with peripheral calcification at the lateral foramina with foraminal steno sis on the right L5-S1. 3. Previous L4-S1 fusion. 4. Diffuse disc bulging at L2-3 and L3-4. PQRS Compliance Statement: One or more of the following individualized dose reduction techniques were utilized for this examinat ion: 1. Automated exposure control 2. Adjustment of the mA and/or kV according to patient size 3. Use of iterative reconstruction technique Electronically signed by: Conner Choi MD (04/21/2021 3:51 PM) [id number]
[2021-04-21] MEDS ORDERED: IV NORMAL SALINE 1000ML BAG 1,000 ML IV ONE (16:15)
--- NOTE | 2021-04-21 16:21 | PHYS DOC ---
Past Medical History Past Medical History: Diabetes-Type II, Fibromyalgia, Hypertension, Other Additional Past Medical Histor: BPH,GOUT, neuropathy (SHELLIE JULIAN [employer]IDENT [employer] COMM[employer]CIAL [employer]ICER) Past Surgical History: Knee Replacement Additional Past Surgical Histo: Right knee replacement, Left thumb surgery, Ri ght eye surgery, back surger (SHELLIE JULIAN [employer]IDENT [employer]IE[employer] COMMERCIAL OFFICER) Smoking Status: Never Smoker Alcohol Use: Occasionally Drug Use: None (SHELLIE JULIAN PRESIDENT [employer]IE[employer] COMM[employer]CIAL OFFICER) General Adult EDM: Chief Complaint: WEAKNESS/GENERALIZED HPI: HPI: Patient is a 61 year old male who presents with generalized weakness and fatigue for the last couple of days. He states he also hit his right knee on the coffee table and he has now sharp shooting pain through the back of the right calf up into the back of the leg. He states that it is hard to lift the right leg due to pain. He states he has weakness. (SHELLIE JULIAN PRESIDENT [employer]IE[employer] COMMERCIAL OFFICER) Review of Systems: Review of Systems: Constitutional: Denies fever or chills. [] Eyes: Denies change in visual acuity. [] HENT: Denies nasal congestion or sore throat. [] Respiratory: Denies cough or shortness of breath. [] Cardiovascular: Denies chest pain or edema. [] GI: Denies abdominal pain, nausea, vomiting, bloody stools or diarrhea. [] : Denies dysuria. [] Musculoskeletal: Denies back pain or joint pain. + Generalized weakness. + Tenderness to calf [] Integument: Denies rash. + Abrasion to right dorsal patella [] Neurologic: Denies headache, focal weakness or sensory changes. + Generalized fatigue [] Endocrine: Denies polyuria or polydipsia. [] Lymphatic: Denies swollen glands. [] Psychiatric: Denies depression or anxiety. [] (SHELLIE JULIAN [employer]IDENT [employer] COMM[employer]CIAL [employer]ER) Heart Score: C/O Chest Pain: No HEART Score for Chest Pain: HEART Score for Chest Pain Response (Comments) Value History Slighlty/Non-Suspicious 0 ECG Nonspecific Repolarizatio 1 Age >45 - < 65 1 Risk Factors 1 or 2 Risk Factors 1 Troponin < Normal Limit 0 Total 3 Risk Factors: Risk Factors: DM, Current or recent (<one month) smoker, HTN, HLP, family history of CAD, obesity. Risk Scores: Score 0 - 3: 2.5% MACE over next 6 weeks - Discharge Home Score 4 - 6: 20.3% MACE over next 6 weeks - Admit for Clinical Observation Score 7 - 10: 72.7% MACE over next 6 weeks - Early Invasive Strategies (SHELLIE JULIAN APRN) Allergies: Allergies: Allergies Coded Allergies Type Severity Reaction Last Updated Verified No Known Drug Allergies 08/06/15 No (SHELLIE JULIAN APRN) Physical Exam: PE: Constitutional: Well developed, well nourished, no acute distress, non-toxic appearance. [] HENT: Normocephalic, atraumatic, bilateral external ears normal, oropharynx moist, no oral exudates, nose normal. [] Eyes: PERRLA, EOMI, conjunctiva normal, no discharge. [] Neck: Normal range of motion, no tenderness, supple, no stridor. [] Cardiovascular:Heart rate regular rhythm, no murmur [] Lungs & Thorax: Bilateral breath sounds clear to auscultation [] Abdomen: Bowel sounds normal, soft, no tenderness, no masses, no pulsatile masses. [] Skin: Warm, dry, no erythema, no rash. [] Back: No tenderness, no CVA tenderness. [] Extremities: No tenderness, no cyanosis, no clubbing, ROM intact, no edema. [] Neurologic: Alert and oriented X 3, normal motor function, normal sensory function, no focal deficits noted. [] Psychologic: Affect normal, judgement normal, mood normal. [] (SHELLIE JULIAN APRN) Current Patient Data: Labs: Laboratory Tests Test 04/21/21 14:00 04/21/21 15:28 White Blood Count 11.3 x10^3/uL (4.0-11.0) H Red Blood Count 5.18 x10^6/uL (4.30-5.70) Hemoglobin 11.8 g/dL (13.0-17.5) L Hematocrit 37.0 % (39.0-53.0) L Mean Corpuscular Volume 71 fL (79-100) L Mean Corpuscular Hemoglobin 23 pg (25-35) L Mean Corpuscular Hemoglobin Concent 32 g/dL (31-37) Red Cell Distribution Width 13.6 % (11.5-14.5) Platelet Count 375 x10^3/uL (140-400) Neutrophils (%) (Auto) 73 % (31-73) Lymphocytes (%) (Auto) 20 % (24-48) L Monocytes (%) (Auto) 7 % (0-9) Eosinophils (%) (Auto) 0 % (0-3) Basophils (%) (Auto) 0 % (0-3) Neutrophils # (Auto) 8.2 x10^3/uL (1.8-7.7) H Lymphocytes # (Auto) 2.2 x10^3/uL (1.0-4.8) Monocytes # (Auto) 0.8 x10^3/uL (0.0-1.1) Eosinophils # (Auto) 0.0 x10^3/uL (0.0-0.7) Basophils # (Auto) 0.0 x10^3/uL (0.0-0.2) Platelet Estimate Adequate (ADEQUATE) Polychromasia Slight Hypochromasia Slight Microcytosis Mod Sodium Level 135 mmol/L (136-145) L Potassium Level 4.2 mmol/L (3.5-5.1) Chloride Level 101 mmol/L (98-107) Carbon Dioxide Level 25 mmol/L (21-32) Anion Gap 9 (6-14) Blood Urea Nitrogen 20 mg/dL (8-26) Creatinine 1.5 mg/dL (0.7-1.3) H Estimated GFR (Cockcroft-Gault) 57.4 BUN/Creatinine Ratio 13 (6-20) Glucose Level 100 mg/dL (70-99) H Calcium Level 10.2 mg/dL (8.5-10.1) H Magnesium Level 2.4 mg/dL (1.8-2.4) Total Bilirubin 0.4 mg/dL (0.2-1.0) Aspartate Amino Transferase (AST) 13 U/L (15-37) L Alanine Aminotransferase (ALT) 15 U/L (16-63) L Alkaline Phosphatase 63 U/L (46-116) Troponin I Quantitative 0.068 ng/mL (0.000-0.055) AD-Lom-H-Type Natriuretic Peptide 71 pg/mL (0-124) Total Protein 9.2 g/dL (6.4-8.2) H Albumin 3.4 g/dL (3.4-5.0) Albumin/Globulin Ratio 0.6 (1.0-1.7) L Laboratory Tests 04/21/21 14:00 Laboratory Tests 04/21/21 15:28 Vital Signs: Vital Signs Date Time Temp Pulse Resp B/P (MAP) Pulse Ox O2 Delivery O2 Flow Rate FiO2 04/21/21 14:14 103 17 173/78 (109) 95 Room Air 04/21/21 13:45 98.8 98.8 (SHELLIE JULIAN APRN) EKG: EK and read by Dr. Reyes as sinus rhythm with T wave inversion in lead III. no stemi[] (SHELLIE JULIAN APRN) Radiology/Procedures: Radiology/Procedures: [] Impression: [address] [address] IMAGING REPORT Signed PATIENT: SAILAJA CHILDS ACCOUNT: [id number] : 1960 LOCATION: ER AGE: 61 SEX: M EXAM STATUS: PRE ER ORD. PHYSICIAN: SHELLIE JULIAN APRN REASON: FATIGUE AND WEAKNESS PROCEDURE: PORTABLE CHEST 1V EXAM: CHEST 1 VIEW History: Fatigue, weakness COMPARISON: 04/09/2019 TECHNIQUE: Single portable radiograph of the chest FINDINGS: The cardiac silhouette is unremarkable. Mild bibasilar lung atelectasis or infiltrates. The costophrenic sulci are clear and well demarcated. IMPRESSION: Mild bibasilar lung atelectasis or infiltrates. Electronically signed by: Landon Kam MD (04/21/2021 2:48 PM) [id number] DICTATED and SIGNED BY: LANDON KAM MD DATE: 04/21/21 [id number] [address] IMAGING REPORT Signed PATIENT: SAILAJA CHILDS ACCOUNT: [id number] : 1960 LOCATION: ER AGE: 61 SEX: M EXAM STATUS: PRE ER ORD. PHYSICIAN: SHELLIE JULIAN APRN REASON: DIZZINESS, HEADACHE, LEG WEAKNESS PROCEDURE: CT HEAD WO CONTRAST CT brain without contrast. HISTORY: Dizziness, headache, leg weakness CT scan the brain was done without contrast. Sinuses are clear. There is no intracranial hemorrhage or subdural hematoma. There is no mass effect or shift of the midline. Ventricles are normal in size. An acute CVA is not identified. There is mild decreased density in the periventricular white matter possible chronic small vessel ischemic disease. There is a focus of decreased density in the brainstem could be artifact or focal lesion MRI could be of benefit. IMPRESSION: 1. No intracranial hemorrhage. 2. Mild white matter changes likely chronic microvascular ischemic changes. 3. Artifact versus small low-density focus in the brainstem, MRI could be of benefit. PQRS Compliance Statement: One or more of the following individualized dose reduction techniques were utilized for this examination: 1. Automated exposure control 2. Adjustment of the mA and/or kV according to patient size 3. Use of iterative reconstruction technique Electronically signed by: Conner Choi MD (04/21/2021 3:28 PM) [id number] DICTATED and SIGNED BY: CONNER CHOI MD DATE: 04/21/21 [id number] [facility] [address] [place], [place] [id number] IMAGING REPORT Signed PATIENT: SAILAJA CHILDS ACCOUNT: [id number] : 1960 LOCATION: ER AGE: 61 SEX: M EXAM STATUS: PRE ER ORD. PHYSICIAN: SHELLIE JUILAN APRN REASON: RIGTH LEG WEAKNESS, PAIN SHOOTING UP BACK OF LEG TO BACK PROCEDURE: CT LUMBAR SPINE WO CONTRAST CT lumbar spine without contrast. HISTORY: Right leg weakness, pain, he history of previous lower lumbar fusion at L4 S1. Axial CT images were obtained through the lumbar spine. Sagittal and coronal rec onstructed images were reviewed. Comparison is made with a study from July 2015. There is no aortic aneurysm. There is no hydronephrosis in the kidneys. Lumbar spines in normal alignment. There is no lumbar fracture. Pedicle screws at L4, L5 and S1. Good position. There is a right disc protrusion at the lateral recess and foramina on the right side at T10-11. There is no focal disc protrusion or spinal stenosis at T11-12. There is no focal disc protrusion or spinal stenosis at T12-L1. There is spurring on the left at T12-L1 on the vertebral body. There is also spurring on the left at L1-2 with lateral disc bulge on the left at L1-2. No central spinal stenosis or foraminal stenosis. There is diffuse bulging of the disc at L2-3 with mild lateral recess stenosis but not central spinal stenosis or foraminal stenosis. There is bulging of the disc with mild spinal stenosis and lateral recess stenosis at L3-4. A focal disc protrusion is not identified. There is not evidence of foraminal stenosis at L3-4. There is spurring at L4-5 more on the right than on the left with mild lateral recess narrowing. There is foraminal narrowing on the right at L4-5. There is a lateral disc extrusion with peripheral calcification at the lateral foramina on the right at L5-S1 with attenuation of the nerve. IMPRESSION: 1. Right disc protrusion with lateral recess stenosis and foraminal narrowing at T10-11. 2. Lateral disc protrusion with peripheral calcification at the lateral foramina with foraminal stenosis on the right L5-S1. 3. Previous L4-S1 fusion. 4. Diffuse disc bulging at L2-3 and L3-4. PQRS Compliance Statement: One or more of the following individualized dose reduction techniques were utilized for this examination: 1. Automated exposure control 2. Adjustment of the mA and/or kV according to patient size 3. Use of iterative reconstruction technique Electronically signed by: Conner Choi MD (04/21/2021 3:51 PM) [id number] DICTATED and SIGNED BY: CONNER CHOI MD DATE: 04/21/21 [id number] (SHELLIE JULIAN APRN) Course & Med Decision Making: Course & Med Decision Making Pertinent Labs and Imaging studies reviewed. (See chart for details) COVID-19 CRITERIA: The patient was evaluated during the global COVID-19 pandemic, and that diagnosis was suspected/considered upon their initial presentation. Their evaluation, treatment and testing was consistent with current guidelines for patients who present with complaints or symptoms that may be related to COVID-19. See HPI. Alert and oriented x4. Amatory steady gait. Speaks in full clear sentences. Patient states he just does not feel well and has generalized fatigue. He states his right leg is hurting and it is hard for him to lift the leg. He states he is having sharp shooting pain through the calf up through the back of the thigh. He states when he was walking he did hit that knee on a coffee table and the pain then started. He states he just has not felt well. He denies chest pain, shortness of breath, abdominal pain, diarrhea, dizziness, nausea, vomiting. Chest x-ray showing possible pneumonia. Troponin is elevated at 0.068. His creatinine is elevated at 1.5. Patient is given fluid. Admitted for elevated troponin. [] (SHELLIE JULIAN APRN) Dragon Disclaimer: Dragon Disclaimer: This electronic medical record was generated, in whole or in part, using a voice recognition dictation system. (SHELLIE JULIAN APRN) Departure Departure Impression: Primary Impression: Elevated troponin Additional Impression: Person under investigation for COVID-19 Disposition: 09 ADMITTED INPATIENT Admitting Physician: ADA (SHELLIE JULIAN APRN) Condition: STABLE Referrals: FRED VIVEROS MD (PCP) Attending Signature Attending Signature I have reviewed the PA/RENEWABLE [employer]ER[employer] TRADER's note and plan of care. I was available for consultation as needed during the patient's visit in the emergency department. I agree with the clinical impression, plan, and disposition. (SALLY REYES DO) SHELLIE JULIAN APRN Apr 21, 2021 16:21 SALLY REYES DO Apr 21, 2021 19:09
[2021-04-21] MEDS ORDERED: ASPIRIN 325 MG TABLET PO ONE (16:30)
[2021-04-21] MEDS ORDERED: PIPERACILLIN/TAZOBACTAM 3.375 GM in IV NORMAL SALINE 50ML 50 ML IV ONE (16:45)
[2021-04-21] MEDS: fentaNYL PF VIAL 100 MCG/2 ML VIAL IVP PRN (17:36)
--- NOTE | 2021-04-21 17:44 | RAD ---
EXAMINATION: US DPLX VENOUS EXTREMITY LOWER RT INDICATION: CALF TENDERNESS, evaluate for deep venous thrombosis. COMPARISONS: None TECHNIQUE: Grayscale, color and spectral Doppler evaluation of the Right lower extremity deep venous system(s) was performed. FINDINGS: Right common femoral, femoral and popliteal veins are normally compressible and demonstrate normally directed and appropriately phasic flow with augmentation. Normal flow is present within the saphenofemoral junctions and deep femoral veins in the proximal thi gh and the posterior tibial and peroneal veins in the proximal calf. IMPRESSION: No deep venous thrombosis in the right lower extremity. Electronically signed by: Khang Santana MD (04/21/2021 5:42 PM) [facility]
--- NOTE | 2021-04-21 19:42 | HP ---
ADMIT DATE: 04/21/2021 CHIEF COMPLAINT: Back pain and leg pain. HISTORY OF PRESENT ILLNESS: The patient is a pleasant middle-aged male who works at [employer]. He presents with sciatic pain, rates it 10/10, has associated weakness, has been occurring for several days. He took osld-uie-[id number] meds, but that did not help. He has recently been diagnosed that his creatinine is a little high at 1.5. He denies ever having any issues with his renal function, previous to this. His troponin is slightly high at 0.06, but I suspect that is secondary to his creatinine. We are going to admit the patient and give him some pain meds, fluids and physical therapy, occupational therapy. Consult Cardiology. PAST MEDICAL HISTORY: Diabetes, fibromyalgia, hypertension, BPH, gout, neuropathy, knee replacement, thumb surgery, right eye surgery, back surgery. ALLERGIES: None. FAMILY HISTORY: Diabetes. SOCIAL HISTORY: Does not drink, smoke or take drugs. He works at [employer]. MEDICATIONS: Reviewed. Please refer to the MRAD. REVIEW OF SYSTEMS: GENERAL: No history of weight change, weakness or fevers. SKIN: No bruising, hair changes or rashes. EYES: No blurred, double or loss of vision. NOSE AND THROAT: No history of nosebleeds, hoarseness or sore throat. HEART: No history of palpitations, chest pain or shortness of breath on exertion. LUNGS: Denies cough, hemoptysis, wheezing or shortness of breath. GASTROINTESTINAL: Denies changes in appetite, nausea, vomiting, diarrhea or constipation. GENITOURINARY: No history of frequency, urgency, hesitancy or nocturia. NEUROLOGIC: Denies history of numbness, tingling, tremor or weakness. PSYCHIATRIC: No history of panic, anxiety or depression. ENDOCRINE: No history of heat or cold intolerance, polyuria or polydipsia. EXTREMITIES: He complains of leg pain. BACK: He complains of back pain. PHYSICAL EXAMINATION: VITALS: Within normal limits and are stable. GENERAL: No apparent distress. Alert and oriented. HEENT: Normal cephalic atraumatic, external auditory canals are patent. EYES: Extraocular muscles are intact, pupils are equally round and reactive to light and accommodation. MUSCULOSKELETAL: Well developed, well nourished, good range of motion. ENDOCRINE: No thyromegaly was palpated. LYMPHATICS: No cervical chain or axillary nodes were noted. HEMATOPOIETIC: No bruising. NECK: Supple, no JVD, no thyromegaly was noted. LUNGS: Clear to auscultation in all lung parker without rhonchi or wheezing. HEART: RRR, S1, S2 present. Peripheral pulses intact, no obvious murmurs were noted. ABDOMEN: Soft, nontender. Positive bowel sounds no organomegaly, normal bowel sounds. EXTREMITIES: Without any cyanosis, clubbing, or edema. Pedal pulses intact, Homans sign is negative. NEUROLOGIC: Normal speech, normal tone. A and O x 3, moves all extremities, no obvious focal deficits. PSYCHIATRIC: Normal affect, normal mood. Stable. SKIN: No ulcerations or rashes, good skin turgor, no jaundice. VASCULAR: Good capillary refill, neurovascular bundle appears to be intact. LABORATORY DATA: Sodium is low at 135. Creatinine is high at 1.5. Troponin is high at 0.68. White count is high at 11, hemoglobin is low at 11.8, platelets 375. COVID testing is negative. Chest x-ray, mild bibasilar lung atelectasis or infiltrates. CT of the head negative other than microvascular disease. Lumbar spine CT, right disk protrusion with lateral recess stenosis and foraminal narrowing at T10-T11. Previous L4-S1 fusion. Lateral disk protrusion with peripheral calcification at the lateral foramen with foraminal stenosis on the right L5-S1. Diffuse disk bulging at L2-3 and L3-4. ASSESSMENT: 1. Radicular pain with abnormal CAT scan. 2. Incidental finding of hyponatremia. 3. Chronic renal insufficiency versus acute kidney injury. 4. Incidental finding of elevated troponin. PLAN: The patient has been admitted. We have consulted Cardiology. We are going to consult Dr. Gillis and Dr. Contreras. Cardiac monitoring, serial enzymes, serial EKGs, IV hydration. Home medications. DVT prophylaxis. Full code. Consult Dr. Watson. CALLI/SANDY/VALENTIN DR: CALLI/mitch TID: [id number]
[2021-04-21] MEDS ORDERED: INSU100I13 SQ (20:47)
[2021-04-21] MEDS ORDERED: METF500T16 PO (20:47)
[2021-04-21 21:40] LABS: PROTHROMBIN TIME PATIENT 14.5 SEC (11.7-14.0)
[2021-04-21] MEDS ORDERED: metFORMIN 500 MG TABLET PO ONE (22:00)
[2021-04-21] MEDS: IV NORMAL SALINE 1000ML BAG 1,000 ML IV SCH (22:07)
--- NOTE | 2021-04-22 02:06 | EKG ---
[facility] [address] [place] [address] Test Date: 2021-04-21 Test Time: 19:05:16 Pat Name: SAILAJA CHILDS Department: Room: Gender: M Physical Medicine Physician: : 1960 Requested By: SHELLIE JULIAN Order Number: [id number] Reading MD: Measurements Intervals Hendricks Rate: 76 P: 47 MS: 166 QRS: -3 QRSD: 94 T: 31 QT: 358 QTc: 407 Interpretive Statements SINUS RHYTHM LEFTWARD AXIS OTHERWISE NORMAL ECG RI6.02 No previous ECG available for comparison
--- NOTE | 2021-04-22 02:07 | EKG ---
[facility] [address] [place] [address] Test Date: 2021-04-21 Test Time: 22:02:04 Pat Name: SAILAJA CHILDS Department: Room: ED HOLD 11 Gender: M Operating Room Manager: : 1960 Requested By: SHELLIE JULIAN Order Number: [id number] Reading MD: Domenico Long MD Measurements Intervals Shiner Rate: 77 P: 38 IA: 170 QRS: -3 QRSD: 96 T: 23 QT: 360 QTc: 409 Interpretive Statements SINUS RHYTHM LEFTWARD AXIS Electronically Signed On 04-22-2021 14:56:04 CDT by Domenico Long MD
[2021-04-22] MEDS: fentaNYL PF VIAL 100 MCG/2 ML VIAL IVP PRN (02:15)
[2021-04-22 07:00] VITALS: BP 149/96
[2021-04-22] MEDS: IV NORMAL SALINE 1000ML BAG 1,000 ML IV SCH (08:20)
[2021-04-22] MEDS ORDERED: GABA-585 PO (10:29)
--- NOTE | 2021-04-22 10:34 | PDOC ---
[employer] PROGRESS NOTE Date of Service DOS: DATE: 04/22/21 TIME: 10:30 Chief Complaint Chief Complaint We have consulted Cardiology. We are going to consult Dr. Gillis and Dr. Contreras. Cardiac monitoring, serial enzymes, serial EKGs, IV hydration. Home medications. DVT prophylaxis. Full code. Consult Dr. Watson. History of Present Illness History of Present Illness The patient is a pleasant middle-aged male who works at [employer]. He presents with sciatic pain, rates it 10/10, has associated weakness, has been occurring for several days. He took [id number] meds, but that did not help. He has recently been diagnosed that his creatinine is a little high at 1.5. He denies ever having any issues with his renal function, previous to this. His troponin is slightly high at 0.06, but I suspect that is secondary to his creatinine. We are going to admit the patient and give him some pain meds, fluids and physical therapy, occupational therapy. Consult Cardiology. 04/22/2021: Patient seen and evaluated. Discussed imaging results. Still with complaint of lower back pain radiates to his leg. Denies any numbness or weakness today. Await neurosurgery recommendations. We will continue to monitor kidney function. Morning labs pending at this time. Vitals/I&O Vitals/I&O: Vital Signs Date Time Temp Pulse Resp B/P (MAP) Pulse Ox O2 Delivery O2 Flow Rate FiO2 04/22/21 05:18 62 15 153/91 (111) 98 Room Air 04/21/21 13:45 98.8 98.8 Physical Exam General: Alert, Oriented X3, Cooperative Heart: Regular rate Lungs: Clear Extremities: No clubbing, No cyanosis Skin: No rashes, No breakdown Labs Labs: Laboratory Tests Test 04/21/21 14:00 04/21/21 15:28 04/21/21 16:47 04/21/21 17:00 White Blood Count 11.3 x10^3/uL (4.0-11.0) Red Blood Count 5.18 x10^6/uL (4.30-5.70) Hemoglobin 11.8 g/dL (13.0-17.5) Hematocrit 37.0 % (39.0-53.0) Mean Corpuscular Volume 71 fL (79-100) Mean Corpuscular Hemoglobin 23 pg (25-35) Mean Corpuscular Hemoglobin Concent 32 g/dL (31-37) Red Cell Distribution Width 13.6 % (11.5-14.5) Platelet Count 375 x10^3/uL (140-400) Neutrophils (%) (Auto) 73 % (31-73) Lymphocytes (%) (Auto) 20 % (24-48) Monocytes (%) (Auto) 7 % (0-9) Eosinophils (%) (Auto) 0 % (0-3) Basophils (%) (Auto) 0 % (0-3) Neutrophils # (Auto) 8.2 x10^3/uL (1.8-7.7) Lymphocytes # (Auto) 2.2 x10^3/uL (1.0-4.8) Monocytes # (Auto) 0.8 x10^3/uL (0.0-1.1) Eosinophils # (Auto) 0.0 x10^3/uL (0.0-0.7) Basophils # (Auto) 0.0 x10^3/uL (0.0-0.2) Platelet Estimate Adequate (ADEQUATE) Polychromasia Slight Hypochromasia Slight Microcytosis Mod Sodium Level 135 mmol/L (136-145) Potassium Level 4.2 mmol/L (3.5-5.1) Chloride Level 101 mmol/L (98-107) Carbon Dioxide Level 25 mmol/L (21-32) Anion Gap 9 (6-14) Blood Urea Nitrogen 20 mg/dL (8-26) Creatinine 1.5 mg/dL (0.7-1.3) Estimated GFR (Cockcroft-Gault) 57.4 BUN/Creatinine Ratio 13 (6-20) Glucose Level 100 mg/dL (70-99) Calcium Level 10.2 mg/dL (8.5-10.1) Magnesium Level 2.4 mg/dL (1.8-2.4) Total Bilirubin 0.4 mg/dL (0.2-1.0) Aspartate Amino Transf (AST/SGOT) 13 U/L (15-37) Alanine Aminotransferase (ALT/SGPT) 15 U/L (16-63) Alkaline Phosphatase 63 U/L (46-116) Troponin I Quantitative 0.068 ng/mL (0.000-0.055) 0.084 ng/mL (0.000-0.055) UB-Vae-V-Type Natriuretic Peptide 71 pg/mL (0-124) Total Protein 9.2 g/dL (6.4-8.2) Albumin 3.4 g/dL (3.4-5.0) Albumin/Globulin Ratio 0.6 (1.0-1.7) Lactic Acid Level 1.8 mmol/L (0.4-2.0) SARS-CoV-2 Antigen (Rapid) Negative (NEGATIVE) Test 04/21/21 20:26 04/21/21 21:05 04/21/21 21:50 Glucose (Fingerstick) 82 mg/dL (70-99) 120 mg/dL (70-99) Prothrombin Time 14.5 SEC (11.7-14.0) Prothromb Time International Ratio 1.1 (0.8-1.1) Troponin I Quantitative 0.095 ng/mL (0.000-0.055) Assessment and Plan Assessmemt and Plan Problems Medical Problems: (1) Elevated troponin Status: Acute (2) Person under investigation for COVID-19 Status: Acute Comment Review of Relevant I have reviewed the following items giselle (where applicable) has been applied. Medications: Current Medications Medications (Trade) Dose Ordered Sig/Ursula Route PRN Reason Start Time Stop Time Status Last Admin Dose Admin Sodium Chloride 1,000 ml @ 1,000 mls/hr 1X ONCE IV 04/21/21 16:15 04/21/21 17:14 DC 04/21/21 17:35 Aspirin (Keegan Aspirin) 325 mg 1X ONCE PO 04/21/21 16:30 04/21/21 16:45 DC 04/21/21 17:36 Fentanyl Citrate (Fentanyl 2ml Vial) 50 mcg PRN Q1HR PRN IVP PAIN 04/21/21 16:45 04/22/21 16:44 04/22/21 02:15 Piperacillin Sod/ Tazobactam Sod 3.375 gm/Sodium Chloride 50 ml @ 100 mls/hr 1X ONCE IV 04/21/21 16:45 04/21/21 17:14 DC 04/21/21 17:36 Sodium Chloride 1,000 ml @ 75 mls/hr [id number] IV 04/21/21 19:00 04/22/21 08:20 Metformin HCl (Glucophage) 500 mg 1X ONCE PO 04/21/21 22:00 04/21/21 22:01 DC 04/21/21 21:50 Justifications for Admission Other Justification MAGALIS HANSON MD Apr 22, 2021 10:34
[2021-04-22 11:00] VITALS: BP 150/94
[2021-04-22 11:41] LABS: CALCIUM 9.3 mg/dL (8.5-10.1); CREATININE 1.2 mg/dL (0.7-1.3); GFR 74.2
--- NOTE | 2021-04-22 11:47 | PDOC2 ---
SHANICE BOWSER APRN 04/22/21 1147: CARDIAC CONSULT DATE OF CONSULT Date of Consult DATE: 04/22/21 TIME: 11:37 REASON FOR CONSULT Reason for Consult: Elevated troponin REFERRING PHYSICIAN Referring Physician: Lexi Yang APRN SOURCE Source: Chart review, Patient HISTORY OF PRESENT ILLNESS HISTORY OF PRESENT ILLNESS This is a 61 yo male who presented secondary to weakness, fatigue, and right leg pain. Patient has been more weak/fatigued for the last several days. Reports he hit his right knee on the coffee table on Thursday and has been experiencing pressure in his lower back and reports shooting pain from his back allo the way down his right leg. Has had difficulty lifting right leg due to the pain. Troponin noted to be mildly elevated upon arrival, which prompted this consult. He denies any chest pain, dizziness, diaphoresis, or nausea/vomiting. PAST MEDICAL HISTORY Past Medical History DDD Cardiovascular: HTN Pulmonary: Other (FABRICIO) CENTRAL NERVOUS SYSTEM: Periperal neuropathy GI: GERD Musculoskeletal: Osteoarthritis Rheumatologic: Gout Renal/: Benign prostatic enlarg. Endocrine: Diabetes PAST SURGICAL HISTORY Past Surgical History: Other (lumbar fusion ) FAMILY HISTORY Family History: Diabetes, Hypertension SOCIAL HISTORY Smoke: No ALCOHOL: none Drugs: None Lives: Alone CURRENT MEDICATIONS CURRENT MEDICATIONS Current Medications Medications (Trade) Dose Ordered Sig/Ursula Route PRN Reason Start Time Stop Time Status Last Admin Dose Admin Sodium Chloride 1,000 ml @ 1,000 mls/hr 1X ONCE IV 04/21/21 16:15 04/21/21 17:14 DC 04/21/21 17:35 Aspirin (Keegan Aspirin) 325 mg 1X ONCE PO 04/21/21 16:30 04/21/21 16:45 DC 04/21/21 17:36 Fentanyl Citrate (Fentanyl 2ml Vial) 50 mcg PRN Q1HR PRN IVP PAIN 04/21/21 16:45 04/22/21 16:44 04/22/21 02:15 Piperacillin Sod/ Tazobactam Sod 3.375 gm/Sodium Chloride 50 ml @ 100 mls/hr 1X ONCE IV 04/21/21 16:45 04/21/21 17:14 DC 04/21/21 17:36 Sodium Chloride 1,000 ml @ 75 mls/hr [id number] IV 04/21/21 19:00 04/22/21 08:20 Metformin HCl (Glucophage) 500 mg 1X ONCE PO 04/21/21 22:00 04/21/21 22:01 DC 04/21/21 21:50 ALLERGIES ALLERGIES: Coded Allergies: No Known Drug Allergies (Unverified , 08/06/15) ROS Review of System 14 point ROS conducted with pertinent positives noted above in hPI PHYSICAL EXAM General: Alert, Oriented X3, Cooperative, No acute distress HEENT: Atraumatic Lungs: Clear to auscultation Heart: Regular rate Abdomen: Soft, No tenderness Extremities: No edema Skin: No breakdown, No significant lesion Neuro: Normal speech, Sensation intact Psych/Mental Status: Mental status NL, Mood NL MUSCULOSKELETAL: Osteoarthritic changes both hands VITALS/I&O VITALS/I&O: Vital Signs Date Time Temp Pulse Resp B/P (MAP) Pulse Ox O2 Delivery O2 Flow Rate FiO2 04/22/21 07:00 98.2 78 16 149/96 (113) 97 Room Air 98.2 LABS Lab: Laboratory Tests Test 04/21/21 14:00 04/21/21 15:28 04/21/21 16:47 04/21/21 17:00 White Blood Count 11.3 x10^3/uL (4.0-11.0) H Red Blood Count 5.18 x10^6/uL (4.30-5.70) Hemoglobin 11.8 g/dL (13.0-17.5) L Hematocrit 37.0 % (39.0-53.0) L Mean Corpuscular Volume 71 fL (79-100) L Mean Corpuscular Hemoglobin 23 pg (25-35) L Mean Corpuscular Hemoglobin Concent 32 g/dL (31-37) Red Cell Distribution Width 13.6 % (11.5-14.5) Platelet Count 375 x10^3/uL (140-400) Neutrophils (%) (Auto) 73 % (31-73) Lymphocytes (%) (Auto) 20 % (24-48) L Monocytes (%) (Auto) 7 % (0-9) Eosinophils (%) (Auto) 0 % (0-3) Basophils (%) (Auto) 0 % (0-3) Neutrophils # (Auto) 8.2 x10^3/uL (1.8-7.7) H Lymphocytes # (Auto) 2.2 x10^3/uL (1.0-4.8) Monocytes # (Auto) 0.8 x10^3/uL (0.0-1.1) Eosinophils # (Auto) 0.0 x10^3/uL (0.0-0.7) Basophils # (Auto) 0.0 x10^3/uL (0.0-0.2) Platelet Estimate Adequate (ADEQUATE) Polychromasia Slight Hypochromasia Slight Microcytosis Mod Sodium Level 135 mmol/L (136-145) L Potassium Level 4.2 mmol/L (3.5-5.1) Chloride Level 101 mmol/L (98-107) Carbon Dioxide Level 25 mmol/L (21-32) Anion Gap 9 (6-14) Blood Urea Nitrogen 20 mg/dL (8-26) Creatinine 1.5 mg/dL (0.7-1.3) H Estimated GFR (Cockcroft-Gault) 57.4 BUN/Creatinine Ratio 13 (6-20) Glucose Level 100 mg/dL (70-99) H Calcium Level 10.2 mg/dL (8.5-10.1) H Magnesium Level 2.4 mg/dL (1.8-2.4) Total Bilirubin 0.4 mg/dL (0.2-1.0) Aspartate Amino Transferase (AST) 13 U/L (15-37) L Alanine Aminotransferase (ALT) 15 U/L (16-63) L Alkaline Phosphatase 63 U/L (46-116) Troponin I Quantitative 0.068 ng/mL (0.000-0.055) 0.084 ng/mL (0.000-0.055) KV-Wnm-D-Type Natriuretic Peptide 71 pg/mL (0-124) Total Protein 9.2 g/dL (6.4-8.2) H Albumin 3.4 g/dL (3.4-5.0) Albumin/Globulin Ratio 0.6 (1.0-1.7) L Lactic Acid Level 1.8 mmol/L (0.4-2.0) SARS-CoV-2 RNA (ARIELLE) Negative (Negative) SARS-CoV-2 Antigen (Rapid) Negative (NEGATIVE) Test 04/21/21 20:26 04/21/21 21:05 04/21/21 21:50 Glucose (Fingerstick) 82 mg/dL (70-99) 120 mg/dL (70-99) H Prothrombin Time 14.5 SEC (11.7-14.0) H Prothrombin Time INR 1.1 (0.8-1.1) Troponin I Quantitative 0.095 ng/mL (0.000-0.055) Laboratory Tests 04/21/21 14:00 Laboratory Tests 04/21/21 15:28 ASSESSMENT/PLAN ASSESSMENT/PLAN 1. Weakness, fatigue 2. Lumbar back pain, radiating down right leg 3. DDD s/p previous lumbar fusion. 4. Mild troponin elevation; highest 0.095. EKG shows SR without significant acute changes. Most probably type II, demand ischemia 5. Accelerated HTN 6. SERENA vs CKD Recommendations ASA Trend trop to note peak Echo to assess LV systolic function Consider outpatient ischemic evaluation Supportive care Follow NS recs STEFANIA WHITE MD 04/22/21 1704: CARDIAC CONSULT ASSESSMENT/PLAN ASSESSMENT/PLAN The patient was seen and interviewed as well as examined at the bedside. The chart was reviewed. The case was discussed. Agree with the plan of care. SHANICE BOWSER APRN Apr 22, 2021 11:47 STEFANIA WHITE MD Apr 22, 2021 17:04
[2021-04-22 11:48] LABS: BASO % 0 % (0-3); EOS # 0.2 x10^3/uL (0.0-0.7); EOS % 2 % (0-3); HEMATOCRIT 33.9 % (39.0-53.0); HEMOGLOBIN 10.9 g/dL (13.0-17.5); LYMPH # 2.6 x10^3/uL (1.0-4.8); LYMPH % 35 % (24-48); MEAN CORPUSCULAR HEMOGLOBIN 23 pg (25-35); MEAN CORPUSCULAR HGB CONC 32 g/dL (31-37); MEAN CORPUSCULAR VOLUME 72 fL (79-100); MONO # 0.6 x10^3/uL (0.0-1.1); MONO % 9 % (0-9); NEUT # 4.1 x10^3/uL (1.8-7.7); NEUT % 54 % (31-73); PLATELET COUNT 339 x10^3/uL (140-400); RED CELL DISTRIBUTION WIDTH 13.8 % (11.5-14.5); WHITE BLOOD COUNT 7.6 x10^3/uL (4.0-11.0)
[2021-04-22 12:29] LABS: CHOLESTEROL/HDL RATIO 4.3
[2021-04-22] MEDS ORDERED: ASPIRIN ENTERIC COATED 81 MG TABLET.DR. PO SCH (14:00)
--- NOTE | 2021-04-22 14:48 | CARD ---
MR#: [id number] Date of Study: 04/22/2021 Ordering Physician: SHANICE BOWSER, Referring Physician: SHANICE BOWSER, Tech: Deo Lebron [facility] APPROVED REPORT EXAM: Two-dimensional and M-mode echocardiogram with Doppler and color Doppler. Other Information Quality : AverageFairHR: 63bpm Rhythm : NSRTechnically limited study due to body habitus. INDICATION Hypertension/HCVD Elevated Troponin (mild) RISK FACTORS Hypertension 2D DIMENSIONS Left Atrium(2D)3.6 (1.6-4.0cm)IVSd1.2 (0.7-1.1cm) Aortic Root(2D)3.4 (2.0-3.7cm)LVDd3.9 (3.9-5.9cm) LVOT Diameter2.0 (1.8-2.4cm)PWd1.2 (0.7-1.1cm) LVDs2.7 (2.5-4.0cm)FS (%) 31.4 % SV39.8 mlLVEF(%)59.9 (>50%) Aortic Valve AoV Peak Christ.173.1cm/sAoV VTI34.9cm AO Peak GR.12.0mmHgLVOT VTI 20.62cm AO Mean GR.7mmHg Mitral Valve MV E Qxhxmxun90.4cm/sMV E Peak Gr.4mmHg MV DECEL [id number] A Zfkhfdnv86.5cm/s MV E Mean Gr.2mmHgE/A Ratio1.3 TDI Lateral E' P. V11.97cm/sMedial E' P. V9.14cm/s E/Lateral E'6.5E/Medial E'8.6 Tricuspid Valve TR P. Cddnspjx025yv/sTR Peak Gr.30mmHg Pulmonary Vein S1 Uszhlcfp03.3cm/sS2 Zwvxvbcf33.83cm/s D2 Qelbmakq76.8cm/s LEFT VENTRICLE The left ventricle is normal size. There is mild concentric left ventricular hypertrophy. The left ve ntricular systolic function is normal. The ejection fraction is 60-65%. There is normal LV segmental wall motion. Transmitral Doppler flow pattern is normal for age. No left ventricle thrombus noted on this study. There is no ventricular septal defect visualized. There is no left ventricular aneurysm. There is no mass noted in the left ventricle. RIGHT VENTRICLE The right ventricle is normal size. There is normal right ventricular wall thickness. The right ventr icular systolic function is normal. ATRIA The left atrium is mildly dilated. The right atrium size is normal. The interatrial septum is intact with no evidence for an atrial septal defect or patent foramen ovale as noted on 2-D or Doppler imagi ng. AORTIC VALVE The aortic valve is calcified but opens well. Doppler and Color Flow revealed no significant aortic r egurgitation. There is no significant aortic valvular stenosis. There is no aortic valvular vegetatio n. MITRAL VALVE The mitral valve is thickened but opens well. There is no evidence of mitral valve prolapse. There is no mitral valve stenosis. Doppler and Color Flow revealed no mitral valve regurgitation noted. TRICUSPID VALVE The tricuspid valve is normal in structure and function. Doppler and Color Flow revealed trace tricus pid regurgitation. There is no tricuspid valve prolapse or vegetation. There is no tricuspid valve st enosis. PULMONIC VALVE Pulmonic valve not well seen. Doppler and Color Flow revealed no pulmonic valvular regurgitation. The re is no pulmonic valvular stenosis. GREAT VESSELS The aortic root is normal in size. The ascending aorta is normal in size. The pulmonary artery is nor mal. The IVC is normal in size and collapses >50% with inspiration. PERICARDIAL EFFUSION There is no pleural effusion. There is no evidence of significant pericardial effusion. Critical Notification Critical Value: No <Conclusion> The left ventricular systolic function is normal. The ejection fraction is 60-65%. There is normal LV segmental wall motion. Trace tricuspid regurgitation. There is no evidence of significant pericardial effusion. Signed by : Deion Mistry, Electronically Approved : 04/22/2021 14:48:04
--- NOTE | 2021-04-22 15:00 | PDOC ---
Provider Note Date of Service: DATE: 04/22/21 TIME: 14:54 Provider Note Patient seen and examined at 1245 in ED Room 11 consulted for back and right leg pain patient reports back and right leg pain staring Thursday but reports that has virtually resolved since admission neuro intact Lumbar CT reviewed, post op changes noted ok to dc from NS standpoint will prescribe hydrocodone and he can follow up with me as OP, may benefit from LESI if pain returns D/W RN Justifications for Admission Other Justification CLAUDINE CHUNG MD Apr 22, 2021 14:59
[2021-04-22 15:20] VITALS: BP 157/95
--- NOTE | 2021-04-22 15:49 | PDOC2 ---
CONSULT Date of Consult Date of Consult DATE: 04/22/21 TIME: 15:41 Reason for Consult Reason for Consult: SERENA Source Source: Chart review History of Present Illness Reason for Visit: Pt is a 61 yo male who presented to the ER with c/o weakness, fatigue, and right knee pain. Patient has been more weak/fatigued for the last several days. Reports he hit his right knee on the coffee table and has been experiencing shooting pain from the right calf up through the back of his left. Has had di fficulty lifting right leg due to the pain. Denies any N/V/D . No CP or SOB. Denies any Urinary complaints . Denies Past Hx of CKD. No Hx of Kidney stones Has been taking Ibuprofen - reports 3-4 tabs for past 3-4 days . Currently denies any complaints. ready in the ER to be discharged Past Medical History Cardiovascular: HTN Pulmonary: Other (FABRICIO) CENTRAL NERVOUS SYSTEM: Periperal neuropathy GI: GERD Musculoskeletal: Osteoarthritis Rheumatologic: Gout Renal/: Benign prostatic enlarg. Endocrine: Diabetes Family History Family History: Diabetes, Hypertension Social History Social History Does not drink, smoke or take drugs. He works at [employer]. Current Problem List Problem List Problems Medical Problems: (1) Elevated troponin Status: Acute (2) Person under investigation for COVID-19 Status: Acute Current Medications Current Medications Current Medications Sodium Chloride 1,000 ml @ 1,000 mls/hr 1X ONCE IV Last administered on 04/21/21at 17:35; Start 04/21/21 at 16:15; Stop 04/21/21 at 17:14; Status DC Aspirin (Keegan Aspirin) 325 mg 1X ONCE PO Last administered on 04/21/21at 17:36; Start 04/21/21 at 16:30; Stop 04/21/21 at 16:45; Status DC Fentanyl Citrate (Fentanyl 2ml Vial) 50 mcg PRN Q1HR PRN IVP PAIN Last administered on 04/22/21at 02:15; Start 04/21/21 at 16:45; Stop 04/22/21 at 16:44 Piperacillin Sod/ Tazobactam Sod 3.375 gm/Sodium Chloride 50 ml @ 100 mls/hr 1X ONCE IV Last administered on 04/21/21at 17:36; Start 04/21/21 at 16:45; Stop 8/29/21 at 17:14; Status DC Sodium Chloride 1,000 ml @ 75 mls/hr [id number] IV Last administered on 04/22/21at 08:20; Start 04/21/21 at 19:00 Metformin HCl (Glucophage) 500 mg 1X ONCE PO Last administered on 04/21/21at 21:50; Start 04/21/21 at 22:00; Stop 04/21/21 at 22:01; Status DC Aspirin (Ecotrin) 81 mg [id number] PO Last administered on 04/22/21at 14:31; Start 04/22/21 at 14:00 Active Scripts Active Allopurinol 100 Mg Tablet 1 Tab PO DAILY Ibuprofen 800 Mg Tablet 800 Mg PO PRN Q8HRS PRN Reported Gabapentin (Gabapentin) 100 Mg Capsule 500 Mg PO TID Lantus Solostar (Insulin Glargine,Hum.rec.anlog) 100 Unit/1 Ml Insuln.pen 1 Unit SQ Metformin Hcl 500 Mg Tablet 500 Mg PO BIDWMEALS Humalog (Insulin Lispro) 100 Unit/1 Ml Cartridge 100 Unit SQ BID LAST DOSE GIVEN: DATE:08-07-15 TIME:12:00 p.m. NEXT DOSE DUE: DATE:08-07-15 TIME:5:00 p.m. Levemir (Insulin Detemir) 100 Unit/1 Ml Vial 12 Unit SQ HS LAST DOSE GIVEN: DATE:08-07-15 TIME:9:00 p.m. NEXT DOSE DUE: DATE:08-08-15 TIME:9:00 p.m. Metformin Hcl 500 Mg Tablet 500 Mg PO BID LAST DOSE GIVEN: DATE:08-08-15 TIME:9:00 a.m. NEXT DOSE DUE: DATE:08-08-15 TIME: 9:00 p.m. Lisinopril 20 Mg Tablet 20 Mg PO DAILY LAST DOSE GIVEN: DATE:08-08-15 TIME: 9:00 a.m. NEXT DOSE DUE: DATE:08-09-15 TIME:9:00 a.m. Allergies Allergies: Coded Allergies: No Known Drug Allergies (Unverified , 08/06/15) ROS Review of System As per HPI, rest of the ROS is negative Physical Exam Physical Exam GENERAL: No apparent distress. Alert and oriented. HEENT: Normal cephalic atraumatic, NECK: Supple, LUNGS: Clear to auscultation in all lung parker HEART: RRR, S1, S2 present. ABDOMEN: Soft, nontender. Positive bowel sounds no organomegaly, EXTREMITIES: Without any cyanosis, clubbing, or edema. NEUROLOGIC: Normal speech, normal tone. A and O x 3, moves all extremities, no obvious focal deficits. PSYCHIATRIC: Normal affect, normal mood. Stable. SKIN: No ulcerations or rashes, good skin turgor, no jaundice. No brennan, No CVA or SP tenderness Vital Signs Vital Signs Date Time Temp Pulse Resp B/P (MAP) Pulse Ox O2 Delivery O2 Flow Rate FiO2 04/22/21 15:20 98.3 82 18 157/95 (115) 100 98.3 04/22/21 11:00 Room Air Assessment & Plan SERENA - Vasomotor,NSAID's , On Lisinopril Cr peaked at 1.5, Baseline Cr 0.9 in 2019; Improving renal function with IV hydration . Supportive care, maintain hydration, Avoid Nephrotoxins Weakness, fatigue per primary Right LE pain- NS consulted DDD Accelerated HTN- cardiology managing Labs Labs Laboratory Tests Test 04/21/21 14:00 04/21/21 15:28 04/21/21 16:47 04/21/21 17:00 White Blood Count 11.3 x10^3/uL (4.0-11.0) Red Blood Count 5.18 x10^6/uL (4.30-5.70) Hemoglobin 11.8 g/dL (13.0-17.5) Hematocrit 37.0 % (39.0-53.0) Mean Corpuscular Volume 71 fL (79-100) Mean Corpuscular Hemoglobin 23 pg (25-35) Mean Corpuscular Hemoglobin Concent 32 g/dL (31-37) Red Cell Distribution Width 13.6 % (11.5-14.5) Platelet Count 375 x10^3/uL (140-400) Neutrophils (%) (Auto) 73 % (31-73) Lymphocytes (%) (Auto) 20 % (24-48) Monocytes (%) (Auto) 7 % (0-9) Eosinophils (%) (Auto) 0 % (0-3) Basophils (%) (Auto) 0 % (0-3) Neutrophils # (Auto) 8.2 x10^3/uL (1.8-7.7) Lymphocytes # (Auto) 2.2 x10^3/uL (1.0-4.8) Monocytes # (Auto) 0.8 x10^3/uL (0.0-1.1) Eosinophils # (Auto) 0.0 x10^3/uL (0.0-0.7) Basophils # (Auto) 0.0 x10^3/uL (0.0-0.2) Platelet Estimate Adequate (ADEQUATE) Polychromasia Slight Hypochromasia Slight Microcytosis Mod Sodium Level 135 mmol/L (136-145) Potassium Level 4.2 mmol/L (3.5-5.1) Chloride Level 101 mmol/L (98-107) Carbon Dioxide Level 25 mmol/L (21-32) Anion Gap 9 (6-14) Blood Urea Nitrogen 20 mg/dL (8-26) Creatinine 1.5 mg/dL (0.7-1.3) Estimated GFR (Cockcroft-Gault) 57.4 BUN/Creatinine Ratio 13 (6-20) Glucose Level 100 mg/dL (70-99) Calcium Level 10.2 mg/dL (8.5-10.1) Magnesium Level 2.4 mg/dL (1.8-2.4) Total Bilirubin 0.4 mg/dL (0.2-1.0) Aspartate Amino Transf (AST/SGOT) 13 U/L (15-37) Alanine Aminotransferase (ALT/SGPT) 15 U/L (16-63) Alkaline Phosphatase 63 U/L (46-116) Troponin I Quantitative 0.068 ng/mL (0.000-0.055) 0.084 ng/mL (0.000-0.055) IJ-Wop-Z-Type Natriuretic Peptide 71 pg/mL (0-124) Total Protein 9.2 g/dL (6.4-8.2) Albumin 3.4 g/dL (3.4-5.0) Albumin/Globulin Ratio 0.6 (1.0-1.7) Lactic Acid Level 1.8 mmol/L (0.4-2.0) SARS-CoV-2 RNA (ARIELLE) Negative (Negative) SARS-CoV-2 Antigen (Rapid) Negative (NEGATIVE) Test 04/21/21 20:26 8/29/21 21:05 04/21/21 21:50 04/22/21 11:15 Glucose (Fingerstick) 82 mg/dL (70-99) 120 mg/dL (70-99) Prothrombin Time 14.5 SEC (11.7-14.0) Prothromb Time International Ratio 1.1 (0.8-1.1) Troponin I Quantitative 0.095 ng/mL (0.000-0.055) < 0.017 ng/mL (0.000-0.055) White Blood Count 7.6 x10^3/uL (4.0-11.0) Red Blood Count 4.70 x10^6/uL (4.30-5.70) Hemoglobin 10.9 g/dL (13.0-17.5) Hematocrit 33.9 % (39.0-53.0) Mean Corpuscular Volume 72 fL (79-100) Mean Corpuscular Hemoglobin 23 pg (25-35) Mean Corpuscular Hemoglobin Concent 32 g/dL (31-37) Red Cell Distribution Width 13.8 % (11.5-14.5) Platelet Count 339 x10^3/uL (140-400) Neutrophils (%) (Auto) 54 % (31-73) Lymphocytes (%) (Auto) 35 % (24-48) Monocytes (%) (Auto) 9 % (0-9) Eosinophils (%) (Auto) 2 % (0-3) Basophils (%) (Auto) 0 % (0-3) Neutrophils # (Auto) 4.1 x10^3/uL (1.8-7.7) Lymphocytes # (Auto) 2.6 x10^3/uL (1.0-4.8) Monocytes # (Auto) 0.6 x10^3/uL (0.0-1.1) Eosinophils # (Auto) 0.2 x10^3/uL (0.0-0.7) Basophils # (Auto) 0.0 x10^3/uL (0.0-0.2) Sodium Level 137 mmol/L (136-145) Potassium Level 4.0 mmol/L (3.5-5.1) Chloride Level 103 mmol/L (98-107) Carbon Dioxide Level 24 mmol/L (21-32) Anion Gap 10 (6-14) Blood Urea Nitrogen 18 mg/dL (8-26) Creatinine 1.2 mg/dL (0.7-1.3) Estimated GFR (Cockcroft-Gault) 74.2 Glucose Level 91 mg/dL (70-99) Calcium Level 9.3 mg/dL (8.5-10.1) Triglycerides Level 77 mg/dL (0-150) Cholesterol Level 158 mg/dL (0-200) LDL Cholesterol, Calculated 106 mg/dL (0-100) VLDL Cholesterol, Calculated 15 mg/dL (0-40) Non-HDL Cholesterol Calculated 121 mg/dL (0-129) HDL Cholesterol 37 mg/dL (40-60) Cholesterol/HDL Ratio 4.3 Laboratory Tests Test 04/21/21 16:47 04/21/21 17:00 04/21/21 20:26 04/21/21 21:05 Lactic Acid Level 1.8 mmol/L (0.4-2.0) Troponin I Quantitative 0.084 ng/mL (0.000-0.055) 0.095 ng/mL (0.000-0.055) SARS-CoV-2 RNA (ARIELLE) Negative (Negative) SARS-CoV-2 Antigen (Rapid) Negative (NEGATIVE) Glucose (Fingerstick) 82 mg/dL (70-99) Prothrombin Time 14.5 SEC (11.7-14.0) Prothromb Time International Ratio 1.1 (0.8-1.1) Test 04/21/21 21:50 04/22/21 11:15 Glucose (Fingerstick) 120 mg/dL (70-99) White Blood Count 7.6 x10^3/uL (4.0-11.0) Red Blood Count 4.70 x10^6/uL (4.30-5.70) Hemoglobin 10.9 g/dL (13.0-17.5) Hematocrit 33.9 % (39.0-53.0) Mean Corpuscular Volume 72 fL (79-100) Mean Corpuscular Hemoglobin 23 pg (25-35) Mean Corpuscular Hemoglobin Concent 32 g/dL (31-37) Red Cell Distribution Width 13.8 % (11.5-14.5) Platelet Count 339 x10^3/uL (140-400) Neutrophils (%) (Auto) 54 % (31-73) Lymphocytes (%) (Auto) 35 % (24-48) Monocytes (%) (Auto) 9 % (0-9) Eosinophils (%) (Auto) 2 % (0-3) Basophils (%) (Auto) 0 % (0-3) Neutrophils # (Auto) 4.1 x10^3/uL (1.8-7.7) Lymphocytes # (Auto) 2.6 x10^3/uL (1.0-4.8) Monocytes # (Auto) 0.6 x10^3/uL (0.0-1.1) Eosinophils # (Auto) 0.2 x10^3/uL (0.0-0.7) Basophils # (Auto) 0.0 x10^3/uL (0.0-0.2) Sodium Level 137 mmol/L (136-145) Potassium Level 4.0 mmol/L (3.5-5.1) Chloride Level 103 mmol/L (98-107) Carbon Dioxide Level 24 mmol/L (21-32) Anion Gap 10 (6-14) Blood Urea Nitrogen 18 mg/dL (8-26) Creatinine 1.2 mg/dL (0.7-1.3) Estimated GFR (Cockcroft-Gault) 74.2 Glucose Level 91 mg/dL (70-99) Calcium Level 9.3 mg/dL (8.5-10.1) Troponin I Quantitative < 0.017 ng/mL (0.000-0.055) Triglycerides Level 77 mg/dL (0-150) Cholesterol Level 158 mg/dL (0-200) LDL Cholesterol, Calculated 106 mg/dL (0-100) VLDL Cholesterol, Calculated 15 mg/dL (0-40) Non-HDL Cholesterol Calculated 121 mg/dL (0-129) HDL Cholesterol 37 mg/dL (40-60) Cholesterol/HDL Ratio 4.3 Review All relevant outside records, renal labs, imaging studies, telemetry/EKG's were reviewed. Images Images EXAM: CHEST 1 VIEW History: Fatigue, weakness COMPARISON: 04/09/2019 TECHNIQUE: Single portable radiograph of the chest FINDINGS: The cardiac silhouette is unremarkable. Mild bibasilar lung atelectasis or infiltrates. The costophrenic sulci are clear and well demarcated. IMPRESSION: Mild bibasilar lung atelectasis or infiltrates. BEATRIZ WINSLOW MD Apr 22, 2021 15:48
--- NOTE | 2021-04-22 17:03 | PDOC3 ---
Discharge Summary Visit Information Date of Admission: Apr 21, 2021 Date of Discharge: Apr 22, 2021 Final Diagnosis Problems Medical Problems: (1) Elevated troponin Status: Acute (2) Person under investigation for COVID-19 Status: Acute Brief Hospital Course Allergies Allergies Coded Allergies Type Severity Reaction Last Updated Verified No Known Drug Allergies 08/06/15 No Vital Signs Vital Signs Date Time Temp Pulse Resp B/P (MAP) Pulse Ox O2 Delivery O2 Flow Rate FiO2 04/22/21 15:20 98.3 82 18 157/95 (115) 100 98.3 04/22/21 11:00 Room Air Lab Results Laboratory Tests Test 04/21/21 14:00 04/21/21 15:28 04/21/21 16:47 04/21/21 17:00 White Blood Count 11.3 x10^3/uL (4.0-11.0) Red Blood Count 5.18 x10^6/uL (4.30-5.70) Hemoglobin 11.8 g/dL (13.0-17.5) Hematocrit 37.0 % (39.0-53.0) Mean Corpuscular Volume 71 fL (79-100) Mean Corpuscular Hemoglobin 23 pg (25-35) Mean Corpuscular Hemoglobin Concent 32 g/dL (31-37) Red Cell Distribution Width 13.6 % (11.5-14.5) Platelet Count 375 x10^3/uL (140-400) Neutrophils (%) (Auto) 73 % (31-73) Lymphocytes (%) (Auto) 20 % (24-48) Monocytes (%) (Auto) 7 % (0-9) Eosinophils (%) (Auto) 0 % (0-3) Basophils (%) (Auto) 0 % (0-3) Neutrophils # (Auto) 8.2 x10^3/uL (1.8-7.7) Lymphocytes # (Auto) 2.2 x10^3/uL (1.0-4.8) Monocytes # (Auto) 0.8 x10^3/uL (0.0-1.1) Eosinophils # (Auto) 0.0 x10^3/uL (0.0-0.7) Basophils # (Auto) 0.0 x10^3/uL (0.0-0.2) Platelet Estimate Adequate (ADEQUATE) Polychromasia Slight Hypochromasia Slight Microcytosis Mod Sodium Level 135 mmol/L (136-145) Potassium Level 4.2 mmol/L (3.5-5.1) Chloride Level 101 mmol/L (98-107) Carbon Dioxide Level 25 mmol/L (21-32) Anion Gap 9 (6-14) Blood Urea Nitrogen 20 mg/dL (8-26) Creatinine 1.5 mg/dL (0.7-1.3) Estimated GFR (Cockcroft-Gault) 57.4 BUN/Creatinine Ratio 13 (6-20) Glucose Level 100 mg/dL (70-99) Calcium Level 10.2 mg/dL (8.5-10.1) Magnesium Level 2.4 mg/dL (1.8-2.4) Total Bilirubin 0.4 mg/dL (0.2-1.0) Aspartate Amino Transf (AST/SGOT) 13 U/L (15-37) Alanine Aminotransferase (ALT/SGPT) 15 U/L (16-63) Alkaline Phosphatase 63 U/L (46-116) Troponin I Quantitative 0.068 ng/mL (0.000-0.055) 0.084 ng/mL (0.000-0.055) PZ-Mrj-O-Type Natriuretic Peptide 71 pg/mL (0-124) Total Protein 9.2 g/dL (6.4-8.2) Albumin 3.4 g/dL (3.4-5.0) Albumin/Globulin Ratio 0.6 (1.0-1.7) Lactic Acid Level 1.8 mmol/L (0.4-2.0) SARS-CoV-2 RNA (ARIELLE) Negative (Negative) SARS-CoV-2 Antigen (Rapid) Negative (NEGATIVE) Test 04/21/21 20:26 04/21/21 21:05 04/21/21 21:50 04/22/21 11:15 Glucose (Fingerstick) 82 mg/dL (70-99) 120 mg/dL (70-99) Prothrombin Time 14.5 SEC (11.7-14.0) Prothromb Time International Ratio 1.1 (0.8-1.1) Troponin I Quantitative 0.095 ng/mL (0.000-0.055) < 0.017 ng/mL (0.000-0.055) White Blood Count 7.6 x10^3/uL (4.0-11.0) Red Blood Count 4.70 x10^6/uL (4.30-5.70) Hemoglobin 10.9 g/dL (13.0-17.5) Hematocrit 33.9 % (39.0-53.0) Mean Corpuscular Volume 72 fL (79-100) Mean Corpuscular Hemoglobin 23 pg (25-35) Mean Corpuscular Hemoglobin Concent 32 g/dL (31-37) Red Cell Distribution Width 13.8 % (11.5-14.5) Platelet Count 339 x10^3/uL (140-400) Neutrophils (%) (Auto) 54 % (31-73) Lymphocytes (%) (Auto) 35 % (24-48) Monocytes (%) (Auto) 9 % (0-9) Eosinophils (%) (Auto) 2 % (0-3) Basophils (%) (Auto) 0 % (0-3) Neutrophils # (Auto) 4.1 x10^3/uL (1.8-7.7) Lymphocytes # (Auto) 2.6 x10^3/uL (1.0-4.8) Monocytes # (Auto) 0.6 x10^3/uL (0.0-1.1) Eosinophils # (Auto) 0.2 x10^3/uL (0.0-0.7) Basophils # (Auto) 0.0 x10^3/uL (0.0-0.2) Sodium Level 137 mmol/L (136-145) Potassium Level 4.0 mmol/L (3.5-5.1) Chloride Level 103 mmol/L (98-107) Carbon Dioxide Level 24 mmol/L (21-32) Anion Gap 10 (6-14) Blood Urea Nitrogen 18 mg/dL (8-26) Creatinine 1.2 mg/dL (0.7-1.3) Estimated GFR (Cockcroft-Gault) 74.2 Glucose Level 91 mg/dL (70-99) Calcium Level 9.3 mg/dL (8.5-10.1) Triglycerides Level 77 mg/dL (0-150) Cholesterol Level 158 mg/dL (0-200) LDL Cholesterol, Calculated 106 mg/dL (0-100) VLDL Cholesterol, Calculated 15 mg/dL (0-40) Non-HDL Cholesterol Calculated 121 mg/dL (0-129) HDL Cholesterol 37 mg/dL (40-60) Cholesterol/HDL Ratio 4.3 Laboratory Tests Test 04/21/21 17:00 04/21/21 20:26 04/21/21 21:05 04/21/21 21:50 Troponin I Quantitative 0.084 ng/mL (0.000-0.055) 0.095 ng/mL (0.000-0.055) SARS-CoV-2 RNA (ARIELLE) Negative (Negative) SARS-CoV-2 Antigen (Rapid) Negative (NEGATIVE) Glucose (Fingerstick) 82 mg/dL (70-99) 120 mg/dL (70-99) Prothrombin Time 14.5 SEC (11.7-14.0) Prothromb Time International Ratio 1.1 (0.8-1.1) Test 04/22/21 11:15 White Blood Count 7.6 x10^3/uL (4.0-11.0) Red Blood Count 4.70 x10^6/uL (4.30-5.70) Hemoglobin 10.9 g/dL (13.0-17.5) Hematocrit 33.9 % (39.0-53.0) Mean Corpuscular Volume 72 fL (79-100) Mean Corpuscular Hemoglobin 23 pg (25-35) Mean Corpuscular Hemoglobin Concent 32 g/dL (31-37) Red Cell Distribution Width 13.8 % (11.5-14.5) Platelet Count 339 x10^3/uL (140-400) Neutrophils (%) (Auto) 54 % (31-73) Lymphocytes (%) (Auto) 35 % (24-48) Monocytes (%) (Auto) 9 % (0-9) Eosinophils (%) (Auto) 2 % (0-3) Basophils (%) (Auto) 0 % (0-3) Neutrophils # (Auto) 4.1 x10^3/uL (1.8-7.7) Lymphocytes # (Auto) 2.6 x10^3/uL (1.0-4.8) Monocytes # (Auto) 0.6 x10^3/uL (0.0-1.1) Eosinophils # (Auto) 0.2 x10^3/uL (0.0-0.7) Basophils # (Auto) 0.0 x10^3/uL (0.0-0.2) Sodium Level 137 mmol/L (136-145) Potassium Level 4.0 mmol/L (3.5-5.1) Chloride Level 103 mmol/L (98-107) Carbon Dioxide Level 24 mmol/L (21-32) Anion Gap 10 (6-14) Blood Urea Nitrogen 18 mg/dL (8-26) Creatinine 1.2 mg/dL (0.7-1.3) Estimated GFR (Cockcroft-Gault) 74.2 Glucose Level 91 mg/dL (70-99) Calcium Level 9.3 mg/dL (8.5-10.1) Troponin I Quantitative < 0.017 ng/mL (0.000-0.055) Triglycerides Level 77 mg/dL (0-150) Cholesterol Level 158 mg/dL (0-200) LDL Cholesterol, Calculated 106 mg/dL (0-100) VLDL Cholesterol, Calculated 15 mg/dL (0-40) Non-HDL Cholesterol Calculated 121 mg/dL (0-129) HDL Cholesterol 37 mg/dL (40-60) Cholesterol/HDL Ratio 4.3 Brief Hospital Course Mr. Morales is a 61 old male who presented with weakness, fatigue, lumbar radicular back pain, mild elevation in troponins, accelerated hypertension, SERENA. Consultation was placed to cardiology, nephrology, and neurosurgery. He was treated with IV fluids with improvement in his kidney function. Echocardiogram was obtained that showed normal left ventricular systolic function with EF 60- 65%. He was recommended outpatient ischemic evaluation.Per neurosurgery, lumbar CT reviewed and postop changes noted; patient okay to discharge from neurosurgery standpoint. Patient was written prescriptions of hydrocodone by Dr. Sorenson and follow-up with him on outpatient basis. Discharge Information Condition at Discharge: Stable Disposition/Orders: D/C to Home Scheduled Allopurinol (Allopurinol) 100 Mg Tablet, 1 TAB PO DAILY for prevent gout, #30 Prescribed by: BRADNIE OGLESBY on 04/10/19 1204 Gabapentin (Gabapentin ) 100 Mg Capsule, 500 MG PO TID for NEUROGENIC PAIN, (Reported) Entered as Reported by: CESIA NUNEZ on 04/22/21 1029 Last Action: New Order on 04/22/21 1029 by CESIA NUNEZ Insulin Detemir (Levemir) 100 Unit/1 Ml Vial, 12 UNIT SQ HS for antidiabetic, (R eported) LAST DOSE GIVEN: DATE:08-07-15 TIME:9:00 p.m. NEXT DOSE DUE: DATE:08-08-15 TIME:9:00 p.m. Entered as Reported by: MICHELLE JENNINGS on 07/30/15 1317 Insulin Lispro (Humalog) 100 Unit/1 Ml Cartridge, 100 UNIT SQ BID for antidi abetic, (Reported) LAST DOSE GIVEN: DATE:08-07-15 TIME:12:00 p.m. NEXT DOSE DUE: DATE:08-07-15 TIME:5:00 p.m. Entered as Reported by: MICHELLE JENNINGS on 07/30/15 1318 Lisinopril (Lisinopril) 20 Mg Tablet, 20 MG PO DAILY for hypertension, (Reported) LAST DOSE GIVEN: DATE:08-08-15 TIME: 9:00 a.m. NEXT DOSE DUE: DATE:08-09-15 TIME:9:00 a.m. Entered as Reported by: ARNOLD FU on 08/04/13 1404 Metformin Hcl (Metformin Hcl) 500 Mg Tablet, 500 MG PO BID for antidiabetic, (Reported) LAST DOSE GIVEN: DATE:08-08-15 TIME:9:00 a.m. NEXT DOSE DUE: DATE:08-08-15 TIME: 9:00 p.m. Entered as Reported by: ARNOLD FU on 08/04/13 1404 Metformin Hcl (Metformin Hcl) 500 Mg Tablet, 500 MG PO BIDWMEALS for ANTI- DIABETIC, Ref 0 (Reported) Entered as Reported by: LEMUEL FELIZ RN on 04/21/212046 Last Action: New Order on 04/21/212046 by LEMUEL FELZI RN Scheduled PRN Ibuprofen (Ibuprofen) 800 Mg Tablet, 800 MG PO PRN Q8HRS PRN for INFLAMMATION, #20 Prescribed by: ALEX HOLLOWAY D.O. on 01/31/19 0631 Miscellaneous Medications Insulin Glargine,Hum.rec.anlog (Lantus Solostar) 100 Unit/1 Ml Insuln.pen, 1 UNIT SQ, (Reported) Entered as Reported by: LEMUEL FELIZ RN on 04/21/212046 Last Action: New Order on 04/21/212046 by LEMUEL FLEIZ RN Discontinued Medications Docusate Sodium (Stool Softener) 50 Mg Capsule, 50 MG PO HS for stool softener, (Reported) Last dose given: 08-08-15 9:00 a.m. Next dose due: 08-09-15 Entered as Reported by: ROSMERY CUEVAS on 11/10/14 1356 Last Action: Discontinued on 04/22/21 1029 by CESIA NUNEZ Gabapentin (Gabapentin ) 300 Mg Capsule, 300 MG PO TID for nerve pain, (Reported) LAST DOSE GIVEN: DATE:08-08-15 TIME:2:00 p.m. NEXT DOSE DUE: DATE:08-08-15 TIME:9:00 p.m. Discontinued Reason: Prescription changed Entered as Reported by: JOHANN LUCERO on 02/14/15 1125 Justicifation of Admission Dx: Justifications for Admission: Justification of Admission Dx: Yes MAGALIS HANSON MD Apr 22, 2021 17:03
--- NOTE | 2021-04-22 20:43 | CONS ---
DATE OF CONSULTATION: 04/22/2021 ATTENDING PHYSICIAN: Dr. Rome Nicolas. I saw him in the Emergency Room, in room 11 at the request of Dr. Garcia for rehab evaluation on 04/22/2021. 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 The patient started having lower back pain with radiation to his right lower extremity, 06/02 starting on 04/19/2021 without any specific injury. He was admitted through the Emergency Room on the healthcare analyst hours of 04/21/2021. He denies any weakness. He admits some numbness, but it is not present at present time. The patient at present admits to no pain at all in his back. He was noted with creatinine 1.5 and troponin 0.06. The patient was receiving IV fluids. The patient with known diabetes mellitus, fibromyalgia, hypertension, benign prostatic hypertrophy, gouty arthritis, diabetic neuropathy, status post knee arthroplasty, thumb surgery, right eye surgery, lumbar spine fusion done [place] [address] Sorenson without any chronic lower back pain. ALLERGIES: He is not known allergic to any medication. MEDICATIONS: He has taken some aspirin yesterday. PHYSICAL EXAMINATION: On physical exam today revealed a middle-aged male. He is alert, oriented to time, place, person and circumstance, follows commands appropriately. Moves all 4 extremities voluntarily where he has 4+/5 grade muscle strength. Deep tendon reflexes are decreased overall with absent knee and ankle jerks and he had equal perception of touch and pinprick sensation bilaterally. No significant tenderness to palpation over lower thoracic and lumbar spine and adjoining paraspinal muscles, sacroiliac joint area and trochanteric bursa. He had pain with free range of motion of both hip joints. He is independent with bed mobility and transfers and he walked at bedside for a few feet as he had IV line in place without any difficulty. No significant pain on lumbar spin range of motion. Straight leg raising test is negative bilaterally. His skin is intact at this time. ASSESSMENT: A middle-aged male with previous lumbar spine fusion with associated degenerative disk disease and degenerative joint disease of lumbar vertebrae without any clinical evidence of ongoing lumbar radiculopathy with recent sprain of his back with right lumbar radiculitis. But at the present time, he had no pain or radiculopathy. Diabetes mellitus with peripheral neuropathy, hypertension, benign prostatic hypertrophy, gouty arthritis, status post knee arthroplasty. RECOMMENDATIONS: Home when medically stable with outpatient followup. Dr. Garcia, I appreciate asking me to participate in the care of this interesting patient. I will be glad to see him for followup with you on as needed basis. I have reviewed with him a home program of physical modalities and stretching exercises and proper body mechanics. KELSEY/NAY/VALENTIN DR: KELSEY/mitch TID: [id number] CC: ROME NICOLAS MD
== END 2021-04-22 17:31 | disposition home or self-care (01) ==
LOC: ER 13:28 → ED HOLD 16:30
PROVIDERS: ADMIT Internal Medicine; ATTEND Internal Medicine
DX: R77.8 Other specified abnormalities of plasma proteins (principal); N17.9 Acute kidney failure, unspecified; M79.7 Fibromyalgia; Z20.822 Contact with and (suspected) exposure to COVID-19; M48.061 Spinal stenosis, lumbar region without neurogenic claudication; M48.04 Spinal stenosis, thoracic region; M54.30 Sciatica, unspecified side; E87.1 Hypo-osmolality and hyponatremia; M79.89 Other specified soft tissue disorders; J98.11 Atelectasis; E11.42 Type 2 diabetes mellitus with diabetic polyneuropathy; I10 Essential (primary) hypertension; M10.9 Gout, unspecified; Z79.4 Long term (current) use of insulin; Z79.899 Other long term (current) drug therapy; N40.0 Benign prostatic hyperplasia without lower urinary tract symptoms; Z96.651 Presence of right artificial knee joint; Z83.3 Family history of diabetes mellitus; Z82.49 Family history of ischemic heart disease and other diseases of the circulatory system; Z98.1 Arthrodesis status
CPT/HCPCS: 36415; 70450; 71045; 72131; 80048; 80053; 80061; 82962; 83605; 83735; 83880; 84484; 85025; 85610; 87040; 87426; 93005; 93306; 93971; 96361; 96365; 96375; 96376; 99285; G0378; J2543; J3010; J7030; U0003; U0005; G0379

== ENCOUNTER 2021-05-29 09:19 | Outpatient (CLI) | payer OTHER ==
[~2021-05-29 09:19] MED LIST changes: +INSU100I13 SQ; +IV RINGERS,LACTATED 1000ML 1,000 ML IV SCH
[2021-05-29 09:54] LABS: GFR 91.6
[2021-05-29] MEDS ORDERED: fentaNYL PF VIAL 250 MCG/5 ML VIAL ONE (10:15)
[2021-05-29] MEDS ORDERED: KETAMINE HCL IN NACL, ISO-OSM 50 MG/5 ML SYRINGE ONE (10:15)
[2021-05-29] MEDS ORDERED: MIDAZOLAM HCL/PF 2 MG/2 ML VIAL. ONE (10:15)
[2021-05-29] MEDS ORDERED: GADOTERATE 7.5 MMOL/15ML VIAL. IVP ONE (11:00)
[2021-05-29] MEDS ORDERED: GADOTERATE 5 MMOL/10ML VIAL. IVP ONE (11:00)
[2021-05-29] MEDS ORDERED: MORPHINE SULFATE 2 MG/ML INJ. ONE (11:27)
[2021-05-29] MEDS ORDERED: GABAPENTIN 100 MG CAPSULE. PO ONE (11:30)
[2021-05-29] MEDS ORDERED: INSULIN LISPRO 100 UNIT/ML 3ML VIAL for OP,RR ONLY. SQ PRN (11:30)
[2021-05-29] MEDS ORDERED: HYDROcodone/APAP 7.5/325MG 1 TAB TABLET PO ONE (11:30)
[2021-05-29] MEDS ORDERED: MORPHINE SULFATE 2 MG/ML INJ. IVP PRN (11:45)
--- NOTE | 2021-05-29 11:55 | RAD ---
MRI LUMBAR SPINE WITHOUT AND WITH IV CONTRAST History: Reason: LUMBAR RADICULOPATHY, R>L SIDE, 25ML CLARISCAN / Spl. Instructions: / History: Technique: Multiplanar, multi sequential MR imaging was performed of the lumbar spine without and wit h intravenous contrast. Comparison: CT April 21, 2021. MRI September 01, 2016 Findings: Posterior stabilization L4-S1 with laminectomies. Straightening of the lumbar spine. No acute fractur e. Degenerative endplate changes L4-L5 and L5-S1. Conus terminates at the normal location. No evidence of nerve root clumping. No pathologic enhancemen t. Partially imaged potential mild right hydronephrosis seen on sagittal image STIR. L1-L2: Small left foraminal disc protrusion. No canal narrowing. Mild left neuroforaminal narrowing. Facet arthropathy. L2-L3: Small disc bulge. Mild facet arthropathy. No canal narrowing. Small left foraminal disc protr usion. Mild left neuroforaminal narrowing. L3-L4: Small disc bulge. Mild facet arthropathy. No canal narrowing. Mild subarticular recess narrow ing. Mild bilateral neuroforaminal narrowing. L4-L5: Posterior decompression. Posterior disc osteophyte. Moderate bilateral neuroforaminal narrowi ng. L5-S1: Disc bulge. No canal narrowing. Moderate facet arthropathy. Right foraminal disc protrusion. Moderate to severe right and mild to moderate left neuroforaminal narrowing. When compared the prior examination the degenerative findings are similar. Impression: 1. Posterior stabilization L4-S1. 2. Multilevel lumbar spondylosis, similar compared to prior. 3. Neuroforaminal narrowing most prominent L4-5 and L5-S1, unchanged. Electronically signed by: Lorenzo Ramirez DO (05/29/2021 11:52 AM) [facility] [place]
[2021-05-29 12:10] VITALS: BP 146/111
== END 2021-05-29 12:18 | disposition home or self-care (01) ==
LOC: MRI 09:19
PROVIDERS: ATTEND Neurological Surgery
DX: M47.26 Other spondylosis with radiculopathy, lumbar region (principal); M48.061 Spinal stenosis, lumbar region without neurogenic claudication; I10 Essential (primary) hypertension; E11.9 Type 2 diabetes mellitus without complications; J45.909 Unspecified asthma, uncomplicated; M19.90 Unspecified osteoarthritis, unspecified site; M10.9 Gout, unspecified; E66.9 Obesity, unspecified; Z79.4 Long term (current) use of insulin; Z79.899 Other long term (current) drug therapy; Z72.89 Other problems related to lifestyle; Z98.890 Other specified postprocedural states; Z82.49 Family history of ischemic heart disease and other diseases of the circulatory system
CPT/HCPCS: 36415; 72158; 82565; 82962; 84520; A9575; J2250; J2270; J3010

== ENCOUNTER → 2021-06-13 | Outpatient (CLI) | payer OTHER ==
[2021-05-29 12:10] VITALS: BP 146/111
[~2021-06-13] MED LIST changes: -IV RINGERS,LACTATED 1000ML 1,000 ML IV SCH; +REGADENOSON 0.4 MG/5 ML DISP.SYRIN. IV ONE
--- NOTE | 2021-06-13 13:49 | RAD ---
MR#: [id number] Date of Study: 06/13/2021 Ordering Physician: CAROL BOYD, Referring Physician: AZIZA HAWLEY Tech: YVONNE Small APPROVED REPORT Test Type: Pharmacological Stress Nurse/Tech: SHELLY SCOTT Test Indications: ELEVATED TROPONIN, CHEST PAIN Cardiac History: CHEST PAIN, AFIB, CA- SEE EMR Medications: SEE EMR Medical History: SEE EMR Resting ECG: SR Resting Heart Rate: 85 bpm Resting Blood Pressure: 154/93mmHg Pretest Chest Pain: No chest pain Nurse/Tech Notes S1,S2, LUNGS CTA, DENIED CHEST PAIN OR SHORTNESS OR BREATH, ONLY COMPLAINT WAS OF BACK PAIN. VSS. Consent: The procedure was explained to the patient in lay terms. Informed consent was witnessed. Avinash eout was entered into [employer]. History and Stress Test performed by GLORIA Chi, ARRT (R) (N) Pharm. Details Pharmacologic stress testing was performed using 0.4mg per 5ml of regadenoson given intravenously ove r 7-10 seconds. Stress Symptoms PT DENIED ANY SYMPTOMS DURING TESTING, TOLERATED WELL. VSS. POST EXERCISE Reason for Termination: Infusion complete Max HR: 101 bpm Max Blood Pressure: 169/84mmHg Blood Pressure response to exercise: Normal blood pressure response during stress. Heart Rate response to exercise: WNL Chest Pain: No. Arrhythmia: No. NO SIGNIFICANT CHANGES NOTED FROM BASELINE EKG. INTERPRETATION Stress EKG Conclusion: The resting EKG shows a sinus rhythm with slight nonspecific ST segment change s. The stress EKG showed no significant changes from baseline. No EKG evidence of stress-induced ischemia. Imaging Protocol IMAGE PROTOCOL: Rest Tc-99m/stress Tc-99m 1 day Rest: Stress: Viability: Radiopharm.Tc99m [id number] Sestamibi Czfn38mJt 31mCi Duration 15min. 13min. Img Date 06/13/2021 06/13/2021 Inj-Img Vwav44tpm. 60min. Rest Admin Site:IV - Left AntecubitalAdministrator:RT Amos (R)(N) Stress Admin Site: IV - Left AntecubitalAdministrator: GLORIA Chi, ARRT (R)(N) STRESS DATA End Diast. Vol.98.0mlLVEDV index BSA38.0ml End Syst. Vol.29.0mlLVESV index BSA12.0ml Myocardial Xdqj688.0gEject. Wrmmrgsl32.0% Stress Scores Regional WT3.00Summed WT15.00 Regional WM0.00Summed WM1.00 LV Perfusion The stress scans show no significant defects. The rest scans show a slight inferior wall defect. Nuclear imaging shows no reversible ischemia or infarct. Wall Motion Left ventricular systolic function is normal with no regional wall motion abnormalities and an ejecti on fraction of 69%. LV Perf. Quant 17 Seg. SSS2.00 17 Seg. SRS3.00 17 Seg. SDS0.00 Stress Defect Extent (% LAD)0.00Rest Defect Extent (% LAD)0.00Rev. Defect Extent (% LAD)0.00 Stress Defect Extent (% LCX) 11.30Rest Defect Extent (% LCX)22.50Rev. Defect Extent (% LCX)5.00 Stress Defect Extent (% RCA)0.00Rest Defect Extent (% RCA)2.20Rev. Defect Extent (% RCA)0.00 Stress Defect Extent (% SINA)2.00Rest Defect Extent (% SINA)8.50Rev. Defect Extent (% SINA)0.90 Conclusion 1. No EKG evidence of stress-induced ischemia. 2. Nuclear imaging shows no reversible ischemia or infarct. 3. Normal left ventricular systolic function with an ejection fraction of 69%. 4. Low risk Lexiscan nuclear stress test. Signed by : Jose Goodwin MD Electronically Approved : 06/13/2021 13:49:05
== END ==
LOC: NM 08:18
PROVIDERS: ATTEND Internal Medicine Cardiovascular Disease
DX: R07.9 Chest pain, unspecified (principal)
CPT/HCPCS: 78452; 93017; A9500; J2785